=== PATIENT | male | born 1955 | race Caucasian/White ===

== ENCOUNTER 2018-05-28 09:05 | Inpatient (IN) | payer OTHER ==
[~2018-05-28] VITALS: Ht 175.3 cm; Wt 69.9 kg
[2018-05-28] VITALS (14 sets, daily range): BP systolic 74–96; BP diastolic 34–54
[~2018-05-28 09:05] MED LIST: ALBU2.5V14 NEB; AMLO10TA4 PO; ASPI-630 PO; LISI-130 PO; MONT10TA6 PO; PANT40TA3 PO; SPIR25TA PO; VENTOLIN HFA18 GM INH
--- NOTE | 2018-05-28 11:44 | RAD ---
Indication: NG tube placement confirmation check TECHNIQUE: Single supine view of the abdomen COMPARISON: None FINDINGS: NG tube is seen curled in the stomach with its tip in the region of gastric cardia. Visualized lung bases are clear. Diffusely distended small bowel loops are seen. IMPRESSION: Tip of the NG tube projects in the region of gastric cardia. Distended gas-filled loops of small bowel concerning for small bowel obstruction or ileus. Electronically signed by: Bo Paige DO (05/28/2018 11:39 AM) [facility]
--- NOTE | 2018-05-28 11:46 | RAD ---
Indication:HYPOXIA SHORTNESS OF BREATH TECHNIQUE:Portable AP chest X-ray COMPARISON:08/17/2015 FINDINGS: Heart is normal in size. Bilateral coarse interstitial opacities are seen without focal consolidation. No pneumothorax or pleural effusion. Visualized bony thorax within normal limits. IMPRESSION: Bilateral interstitial process may be secondary to atypical/viral infection or chronic interstitial changes. Findings are slightly worsened compared to previous study from 2014. Electronically signed by: Bo Paige DO (05/28/2018 11:43 AM) [facility]
[2018-05-28 11:47] LABS: BASE EXCESS COOX 1 mmol/L (-3-3); HCO3 COOX 31 mmol/L (21-28); METHEMOGLOBIN 0.3 % (0.0-1.9); OXYHEMOGLOBIN 92.7 %; PO2 COOX 81 mmHg (65-108); SAT O2 COOX 95 % (92-99)
[2018-05-28 11:49] LABS: PCO2 COOX 75 mmHg (35-46)
[2018-05-28] MEDS ORDERED: IV NORMAL SALINE 500ML BAG 500 ML IV ONE (12:00)
[2018-05-28 12:42] LABS: HEMATOCRIT 45.4 % (39.0-53.0); HEMOGLOBIN 14.2 g/dL (13.0-17.5); RED BLOOD COUNT 5.4 x10^6/uL (4.30-5.70); WHITE BLOOD COUNT 6.1 x10^3/uL (4.0-11.0)
--- NOTE | 2018-05-28 12:50 | HP ---
ADMIT DATE: 05/28/2018 HISTORY OF PRESENT ILLNESS: The patient is a 62-year-old male patient, an inmate at the [facility], who was seen at the Emergency Room of [facility] and admitted to the ICU with altered mental status. He was found to be extremely hypoxic, and he has acute hypoxic hypercapnic respiratory failure. 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 He was also found to be hyperkalemic and was admitted to the ICU of [facility]. He was put on BiPAP machine and was treated for hyperkalemia with Kayexalate, insulin and glucose as well as breathing treatment. He actually did well. He has awakened this morning. Unfortunately, he became extremely restless, agitated and was given Ativan before he was transferred to [facility] Intensive Care Unit. He apparently agreed to be DNR/DNI; however, I spoke with the doctor at the [facility] and given that he has hepatic encephalopathy, they have to have according to their legal department recommendation that he has to be more awake, alert, lucid and should be witnessed by mental health professional as well as his primary care physician. He is now legally still full code. Unfortunately, we do not know any immediate family members to talk to them about his condition, and therefore, he was admitted to [facility] full code. We will intubate him as necessary and consult all the subspecialists as needed and come Wednesday will be able to have more information and will consult our palliative care team and consider hospice care. By the time he arrived here, he was completely encephalopathic, unresponsive and does not give any useful information. PAST MEDICAL HISTORY: Significant for hypertension, chronic obstructive pulmonary disease, end-stage liver disease secondary to hepatitis C. He also has hepatocellular carcinoma with acute renal injury due to probably hepatorenal syndrome. SOCIAL HISTORY: The patient is an inmate. He is a smoker. There is no history of recent alcohol abuse or illegal drug use. FAMILY HISTORY: Unobtainable. MEDICATIONS: At the [facility] include albuterol inhaler 2 puffs 4 times a day, amlodipine 10 mg once a day, calcium carbonate 500 mg 3 times a day, furosemide 40 mg once a day, hydroxyzine 25 mg 3 times a day as needed. He was on lisinopril 40 mg once a day, Protonix 40 mg once a day and spironolactone 100 mg daily. ALLERGIES: He has no known drug allergies. REVIEW OF SYSTEMS: Unobtainable. PHYSICAL EXAMINATION: GENERAL: On examining him, he was pale, somewhat cachectic, but no jaundice, no cyanosis or thyromegaly. No jugular venous distention, but severe bilateral lower extremity lymphedema. VITAL SIGNS: His heart rate was 81, blood pressure was 86/46, temperature was 97.8, respiratory rate 20, and oxygen saturation was 100% on FiO2 of 50%. HEAD, EYES, EARS, NOSE AND THROAT: Showed normocephalic, atraumatic. NECK: Supple. HEART: Showed normal first and second heart sounds with no gallop, rub or murmur. CHEST: Clear to auscultation. No crepitation or rhonchi. ABDOMEN: Distended, with positive shifting dullness. There is no guarding or rigidity. No organomegaly. All hernial orifice intact. He has a small periumbilical easily reducible hernia. LABORATORY DATA: His blood gas this morning around 6:00 showed a pH of 7.22, pCO2 of 82, pO2 of 73, bicarbonate 34 and oxygen saturation was 99% on FiO2 of 40%. His white cell count was 6400, hemoglobin 14.7, hematocrit 47, MCV 83 and platelet count of 135,000. His chemistry showed a serum sodium 149, potassium 6.3, chloride 109, bicarbonate 31, anion gap of 9, BUN 53, creatinine 1.5, estimated GFR was 47 mL per minute, his glucose 100, calcium was 7.4. Total bilirubin was 2.4. AST, ALT, alkaline phosphatase are elevated. Ammonia was 92. Total protein was 5.1, albumin was 2.1. His prothrombin time was 12.5, INR of 1.2, aPTT was 25. His urinalysis showed the urine was clear with a pH of 5, specific gravity of 1.015. The urine was negative for protein, glucose, ketones, blood, nitrite and bilirubin. There were no rbc's, wbc's and very few bacteria. His toxic screen was positive for opiates, but negative for methadone, barbiturates, phencyclidine, amphetamine, methamphetamine, benzodiazepine, cocaine, cannabinoids. Apparently, his chest x-ray showed he has bilateral interstitial opacities, may be secondary to chronic interstitial changes, mild interstitial pulmonary edema or atypical infection. The CT scan of the head was done at [facility] also showed the patient's posterior fossa is unremarkable. There is no evidence of acute intracranial hemorrhage or abnormal extraaxial fluid collection, no evidence of mass effect or midline shift. A small ill-defined low density foci in the periventricular white matter bilaterally, likely small lacunar infarcts, mild prominence of ventricles and sulci, compatible with mild involutionary changes or atrophy, mild arterial vascular calcification. The visualized orbits are unremarkable. Visualized paranasal sinuses and mastoid air cells are clear. No acute calvarial abnormality. The patient was basically transferred to [facility] with acute hypoxic hypercapnic respiratory failure, hepatic encephalopathy, end-stage liver disease, acute kidney injury, likely due to hepatorenal syndrome, hyperkalemia. He is known to have chronic hepatitis C and also hepatocellular carcinoma detected on MRI done on 05/24/2018, which showed that the patient has large infiltrative centered in the segment 2-3 with a direct invasion of the left portal vein and adjacent small satellite lesion. He has also large circumscribed hepatic mass centered in segment 8 with arterial enhancement and washout, this mass results in peripheral intrahepatic bile duct dilatation of the right lobe. He has cirrhosis, portal hypertension, marked splenomegaly, portosystemic varices and moderate ascites. I have had a lengthy discussion with the doctor of the facility there, and apparently, the patient is legally considered full code. My plan is to put an NG tube, start him on lactulose to treat his hepatic encephalopathy, IV fluid and consult the cyanide case hardener as he might require intubation and mechanical ventilation. I also will consult the aco coordinator. Eventually, we are able to contact his family and the patient is more awake and can make a decision, he probably needs to be on hospice care. MARGARITO TONEY MD DR: HILDA/grace JOB#: [id number] / [id number]
[2018-05-28 12:56] LABS: PROTHROMBIN TIME PATIENT 16.2 SEC (11.7-14.0)
[2018-05-28] MEDS: methylPREDNISolone SOD SUCC PF 40 MG/ML VIAL. IV SCH ×2 (13:14→22:10)
[2018-05-28] MEDS: LACTULOSE 20 GM/30 ML SOLUTION. PO SCH ×3 (13:14→19:53)
[2018-05-28] MEDS: MONTELUKAST SODIUM 10 MG TABLET. PO SCH (13:14)
[2018-05-28] MEDS: PANTOPRAZOLE 40 MG TABLET.DR. PO SCH (13:14)
[2018-05-28] MEDS: IV NORMAL SALINE 1000ML BAG 1,000 ML IV SCH (13:15)
[2018-05-28 13:17] LABS: ALBUMIN/GLOBULIN RATIO 0.6 (1.0-1.7); CALCIUM 6.8 mg/dL (8.5-10.1); CREATININE 1.5 mg/dL (0.7-1.3); GFR 47.4; POTASSIUM 5.1 mmol/L (3.5-5.1); TOTAL BILIRUBIN 1.9 mg/dL (0.2-1.0); TOTAL PROTEIN 5.2 g/dL (6.4-8.2)
[2018-05-28] MEDS ORDERED: CALC200T3 PO (13:58)
[2018-05-28] MEDS ORDERED: LACT20SO PO (13:58)
[2018-05-28] MEDS ORDERED: MORP15TA PO (13:58)
[2018-05-28] MEDS ORDERED: FURO40TA4 PO (13:58)
[2018-05-28] MEDS ORDERED: TRIA15OI TP (13:58)
[2018-05-28] MEDS ORDERED: ALBUTEROL SULFATE 2.5 MG/3 ML NEBU. NEB SCH (14:00)
[2018-05-28] MEDS ORDERED: PIP/TAZO PER PHARMACY MC PRN (14:00)
[2018-05-28] MEDS: PIPERACILLIN/TAZOBACTAM 3.375 GM in IV NORMAL SALINE 50ML 50 ML IV SCH ×2 (14:23→19:53)
--- NOTE | 2018-05-28 14:32 | PDOC2 ---
CONSULT Date of Consult Date of Consult DATE: 05/28/18 TIME: 14:27 Reason for Consult Reason for Consult: Cirrhosis-hep c-encephalopathy Past Medical History Cardiovascular: CAD, HTN, Other Pulmonary: Bronchitis, COPD GI: GI bleed Heme/Onc: No pertinent hx Hepatobiliary: Hep A/B/C Psych: Anxiety, Panic Musculoskeletal: Osteoarthritis Rheumatologic: No pertinent hx Infectious disease: Other Renal/: No pertinent hx Endocrine: Hypothyroidism Past Surgical History Past Surgical History: Other Family History Family History: Cancer Social History ALCOHOL: none Drugs: None Current Medications Current Medications Current Medications Pantoprazole Sodium (Protonix) 40 mg DAILYAC PO Last administered on 05/28/18 13:14; Start 05/28/18 at 12:30 Albuterol Sulfate (Ventolin Neb Soln) 2.5 mg TID NEB Last administered on at 13:02; Start 05/28/18 at 14:00; Stop 05/28/18 at 14:03; Status DC Montelukast Sodium (Singulair) 10 mg DAILY PO Last administered on 05/28/18at 13 :14; Start 05/28/18 at 12:30 Lactulose (Lactulose) 20 gm Q4H PO Last administered on 05/28/18at 13:14; Start 05/28/18 at 12:00 Sodium Chloride 500 ml @ 500 mls/hr 1X ONCE IV Last administered on at 12:07; Start 05/28/18 at 12:00; Stop 05/28/18 at 12:59; Status DC Sodium Chloride 1,000 ml @ 100 mls/hr Q10H IV Last administered on 05/28/18at 13:15; Start 05/28/18 at 13:00 Methylprednisolone Sodium Succinate (SOLU-Medrol 40MG VIAL) 40 mg Q8HRS IV Last administered on 05/28/18at 13:14; Start 05/28/18 at 14:00 Albuterol/ Ipratropium (Duoneb) 3 ml Q4HRS NEB ; Start 05/28/18 at 16:00 Budesonide (Pulmicort) 0.5 mg RTBID NEB ; Start 05/28/18 at 20:00 Piperacillin Sod/ Tazobactam Sod (Zosyn Per Pharmacy) 1 each PRN DAILY PRN MC SEE COMMENTS; Start 05/28/18 at 14:00 Piperacillin Sod/ Tazobactam Sod 3.375 gm/Sodium Chloride 50 ml @ 100 mls/hr Q6HRS IV Last administered on 05/28/18at 14:23; Start 05/28/18 at 14:00 Active Scripts Active Aldactone (Spironolactone) 25 Mg Tablet 25 Mg PO [id number] Protonix (Pantoprazole Sodium) 40 Mg Tablet 40 Mg PO DAILYAC Reported Tums (Calcium Carbonate) 200 Mg Tab.chew 200 Mg PO PRN BID PRN Triamcinolone Acetonide 0.1% Oint (Triamcinolone Acetonide) 15 Gm Oint...g. 1 Tara TP BID MIX WITH EUCERIN DIRECTED BY PHYSICIAN Morphine Sulfate 15 Mg Tablet 15 Mg PO PRN Q8HRS PRN Lactulose 20 Gm/30 Ml Solution 20 Gm PO DAILY Furosemide 40 Mg Tablet 40 Mg PO BID Ventolin Hfa Inhaler (Albuterol Sulfate) 18 Gm Hfa.aer.ad 2 Puff INH QID Albuterol Sulfate Conc Neb Soln (Albuterol Sulfate) 2.5 Mg/0.5 Ml Vial.neb 2.5 Mg NEB TID Singulair Tablet (Montelukast Sodium) 10 Mg Tablet 1 Tab PO DAILY Norvasc (Amlodipine Besylate) 10 Mg Tablet 1 Tab PO DAILY Lisinopril 40 Mg Tablet 1 Tab PO DAILY Aspirin 81 Mg Tab.chew 1 Tab PO DAILY Allergies Allergies: Coded Allergies: No Known Drug Allergies (Unverified , 06/24/15) Vitals VITALS Vital Signs Date Time Temp Pulse Resp B/P (MAP) Pulse Ox O2 Delivery O2 Flow Rate FiO2 05/28/18 13:02 96 BiPAP/CPAP 05/28/18 13:00 80 24 84/53 (63) 05/28/18 11:17 15.0 05/28/18 10:30 97.1 97.1 Labs Labs Laboratory Tests Test 05/28/18 11:40 05/28/18 12:30 O2 Saturation 95 % (92-99) Arterial Blood pH 7.24 (7.35-7.45) Arterial Blood pCO2 at Patient Temp 75 mmHg (35-46) Arterial Blood pO2 at Patient Temp 81 mmHg (65-108) Arterial Blood HCO3 31 mmol/L (21-28) Arterial Blood Base Excess 1 mmol/L (-3-3) Oxyhemoglobin 92.7 % Methemoglobin 0.3 % (0.0-1.9) Carbon Monoxide, Quantitative 2.4 % (0.0-1.9) FiO2 50 White Blood Count 6.1 x10^3/uL (4.0-11.0) Red Blood Count 5.40 x10^6/uL (4.30-5.70) Hemoglobin 14.2 g/dL (13.0-17.5) Hematocrit 45.4 % (39.0-53.0) Mean Corpuscular Volume 84 fL (79-100) Mean Corpuscular Hemoglobin 26 pg (25-35) Mean Corpuscular Hemoglobin Concent 31 g/dL (31-37) Red Cell Distribution Width 22.0 % (11.5-14.5) Platelet Count 124 x10^3/uL (140-400) Prothrombin Time 16.2 SEC (11.7-14.0) Prothromb Time International Ratio 1.4 (0.8-1.1) Sodium Level 144 mmol/L (136-145) Potassium Level 5.1 mmol/L (3.5-5.1) Chloride Level 109 mmol/L (98-107) Carbon Dioxide Level 30 mmol/L (21-32) Anion Gap 5 (6-14) Blood Urea Nitrogen 56 mg/dL (8-26) Creatinine 1.5 mg/dL (0.7-1.3) Estimated GFR (Cockcroft-Gault) 47.4 BUN/Creatinine Ratio 37 (6-20) Glucose Level 114 mg/dL (70-99) Lactic Acid Level 1.6 mmol/L (0.4-2.0) Calcium Level 6.8 mg/dL (8.5-10.1) Total Bilirubin 1.9 mg/dL (0.2-1.0) Aspartate Amino Transf (AST/SGOT) 259 U/L (15-37) Alanine Aminotransferase (ALT/SGPT) 51 U/L (16-63) Alkaline Phosphatase 190 U/L (46-116) Ammonia 87 mcmol/L (11-34) Total Protein 5.2 g/dL (6.4-8.2) Albumin 2.0 g/dL (3.4-5.0) Albumin/Globulin Ratio 0.6 (1.0-1.7) Laboratory Tests Test 05/28/18 11:40 05/28/18 12:30 O2 Saturation 95 % (92-99) Arterial Blood pH 7.24 (7.35-7.45) Arterial Blood pCO2 at Patient Temp 75 mmHg (35-46) Arterial Blood pO2 at Patient Temp 81 mmHg (65-108) Arterial Blood HCO3 31 mmol/L (21-28) Arterial Blood Base Excess 1 mmol/L (-3-3) Oxyhemoglobin 92.7 % Methemoglobin 0.3 % (0.0-1.9) Carbon Monoxide, Quantitative 2.4 % (0.0-1.9) FiO2 50 White Blood Count 6.1 x10^3/uL (4.0-11.0) Red Blood Count 5.40 x10^6/uL (4.30-5.70) Hemoglobin 14.2 g/dL (13.0-17.5) Hematocrit 45.4 % (39.0-53.0) Mean Corpuscular Volume 84 fL (79-100) Mean Corpuscular Hemoglobin 26 pg (25-35) Mean Corpuscular Hemoglobin Concent 31 g/dL (31-37) Red Cell Distribution Width 22.0 % (11.5-14.5) Platelet Count 124 x10^3/uL (140-400) Prothrombin Time 16.2 SEC (11.7-14.0) Prothromb Time International Ratio 1.4 (0.8-1.1) Sodium Level 144 mmol/L (136-145) Potassium Level 5.1 mmol/L (3.5-5.1) Chloride Level 109 mmol/L (98-107) Carbon Dioxide Level 30 mmol/L (21-32) Anion Gap 5 (6-14) Blood Urea Nitrogen 56 mg/dL (8-26) Creatinine 1.5 mg/dL (0.7-1.3) Estimated GFR (Cockcroft-Gault) 47.4 BUN/Creatinine Ratio 37 (6-20) Glucose Level 114 mg/dL (70-99) Lactic Acid Level 1.6 mmol/L (0.4-2.0) Calcium Level 6.8 mg/dL (8.5-10.1) Total Bilirubin 1.9 mg/dL (0.2-1.0) Aspartate Amino Transf (AST/SGOT) 259 U/L (15-37) Alanine Aminotransferase (ALT/SGPT) 51 U/L (16-63) Alkaline Phosphatase 190 U/L (46-116) Ammonia 87 mcmol/L (11-34) Total Protein 5.2 g/dL (6.4-8.2) Albumin 2.0 g/dL (3.4-5.0) Albumin/Globulin Ratio 0.6 (1.0-1.7) Assessment/Plan Assessment/Plan Cirrhosis- end stage, secondary to hep c with encephalopathy Plan medical therapy pending disposition plans Full note dictated NATHEN BAUER MD May 28, 2018 14:32
[2018-05-28 16:10] LABS: BASE EXCESS COOX 3 mmol/L (-3-3); HCO3 COOX 29 mmol/L (21-28); METHEMOGLOBIN 0.2 % (0.0-1.9); OXYHEMOGLOBIN 88.7 %; PCO2 COOX 52 mmHg (35-46); PO2 COOX 58 mmHg (65-108); SAT O2 COOX 91 % (92-99)
[2018-05-28] MEDS: IPRATRPIUM/ALBUTEROL 0.5/2.5MG 3 ML NEBU. NEB SCH ×3 (17:06→23:50)
[2018-05-28] MEDS: MORPHINE SULFATE 2 MG/ML VIAL. IV PRN ×2 (17:08→19:54)
--- NOTE | 2018-05-28 19:36 | PDOC ---
Infectious Disease Note Vital Sign Vital Signs Vital Signs Date Time Temp Pulse Resp B/P (MAP) Pulse Ox O2 Delivery O2 Flow Rate FiO2 05/28/18 19:00 90 22 76/48 (57) 91 BiPAP/CPAP 05/28/18 15:00 97.2 97.2 05/28/18 11:17 15.0 Labs Lab Laboratory Tests Test 05/28/18 11:40 05/28/18 12:30 05/28/18 16:05 O2 Saturation 95 % (92-99) 91 % (92-99) Arterial Blood pH 7.24 (7.35-7.45) 7.37 (7.35-7.45) Arterial Blood pCO2 at Patient Temp 75 mmHg (35-46) 52 mmHg (35-46) Arterial Blood pO2 at Patient Temp 81 mmHg (65-108) 58 mmHg (65-108) Arterial Blood HCO3 31 mmol/L (21-28) 29 mmol/L (21-28) Arterial Blood Base Excess 1 mmol/L (-3-3) 3 mmol/L (-3-3) Oxyhemoglobin 92.7 % 88.7 % Methemoglobin 0.3 % (0.0-1.9) 0.2 % (0.0-1.9) Carbon Monoxide, Quantitative 2.4 % (0.0-1.9) 2.3 % (0.0-1.9) FiO2 50 30 White Blood Count 6.1 x10^3/uL (4.0-11.0) Red Blood Count 5.40 x10^6/uL (4.30-5.70) Hemoglobin 14.2 g/dL (13.0-17.5) Hematocrit 45.4 % (39.0-53.0) Mean Corpuscular Volume 84 fL (79-100) Mean Corpuscular Hemoglobin 26 pg (25-35) Mean Corpuscular Hemoglobin Concent 31 g/dL (31-37) Red Cell Distribution Width 22.0 % (11.5-14.5) Platelet Count 124 x10^3/uL (140-400) Prothrombin Time 16.2 SEC (11.7-14.0) Prothromb Time International Ratio 1.4 (0.8-1.1) Sodium Level 144 mmol/L (136-145) Potassium Level 5.1 mmol/L (3.5-5.1) Chloride Level 109 mmol/L (98-107) Carbon Dioxide Level 30 mmol/L (21-32) Anion Gap 5 (6-14) Blood Urea Nitrogen 56 mg/dL (8-26) Creatinine 1.5 mg/dL (0.7-1.3) Estimated GFR (Cockcroft-Gault) 47.4 BUN/Creatinine Ratio 37 (6-20) Glucose Level 114 mg/dL (70-99) Lactic Acid Level 1.6 mmol/L (0.4-2.0) Calcium Level 6.8 mg/dL (8.5-10.1) Total Bilirubin 1.9 mg/dL (0.2-1.0) Aspartate Amino Transf (AST/SGOT) 259 U/L (15-37) Alanine Aminotransferase (ALT/SGPT) 51 U/L (16-63) Alkaline Phosphatase 190 U/L (46-116) Ammonia 87 mcmol/L (11-34) Total Protein 5.2 g/dL (6.4-8.2) Albumin 2.0 g/dL (3.4-5.0) Albumin/Globulin Ratio 0.6 (1.0-1.7) Objective Assessment Bilateral interstitial opacities Acute respiratory failure DEWAYNE SBO vs ileus Hepatic encephalopathy Hepatocellular carcinoma Hepatitis C COPD Chronic venous stasis h/x IVDU Incarcerated Plan Plan of Care empiric Zosyn and add Zyvox BC NGTD ([facility]) Monitor labs/platelets Supportive care No family available Full code Above d/w Dr. Prado Thank you [id number] Patient seen and examined. Chart reviewed in detail. Case discussed with GREEN MARKETER. Agree with above plan. GILSON ABREU APRN May 28, 2018 19:36 MALA PRADO MD May 28, 2018 19:57
[2018-05-28] MEDS: BUDESONIDE 0.5 MG/2 ML NEBU. NEB SCH (19:59)
[2018-05-29] VITALS (24 sets, daily range): BP systolic 74–142; BP diastolic 42–66
[2018-05-29] MEDS ORDERED: NOREPINEPHRIN 8MG/250ML PREMIX 250 ML IV PRN (01:15)
[2018-05-29] MEDS: PIPERACILLIN/TAZOBACTAM 3.375 GM in IV NORMAL SALINE 50ML 50 ML IV SCH ×4 (01:41→17:54)
[2018-05-29] MEDS: IPRATRPIUM/ALBUTEROL 0.5/2.5MG 3 ML NEBU. NEB SCH ×5 (03:10→20:06)
[2018-05-29] MEDS: IV NORMAL SALINE 1000ML BAG 1,000 ML IV SCH (03:37)
[2018-05-29] MEDS: LACTULOSE 20 GM/30 ML SOLUTION. PO SCH ×5 (03:59→21:03)
[2018-05-29 04:01] LABS: HEMATOCRIT 45.1 % (39.0-53.0); HEMOGLOBIN 14.3 g/dL (13.0-17.5); RED BLOOD COUNT 5.4 x10^6/uL (4.30-5.70); RED CELL DISTRIBUTION WIDTH 22.1 % (11.5-14.5); WHITE BLOOD COUNT 6.7 x10^3/uL (4.0-11.0)
[2018-05-29 04:22] LABS: ALBUMIN 2.1 g/dL (3.4-5.0); ALBUMIN/GLOBULIN RATIO 0.7 (1.0-1.7); CREATININE 1.8 mg/dL (0.7-1.3); GFR 38.4; POTASSIUM 4.8 mmol/L (3.5-5.1); TOTAL BILIRUBIN 1.9 mg/dL (0.2-1.0); TOTAL PROTEIN 5.3 g/dL (6.4-8.2)
--- NOTE | 2018-05-29 04:25 | CONS ---
DATE OF CONSULTATION: 05/28/2018 GASTROENTEROLOGY CONSULTATION REASON FOR CONSULTATION: Hep C, cirrhosis, hepatic encephalopathy. REFERRING PHYSICIAN: Dr. Barrios. HISTORY OF PRESENT ILLNESS: A 62-year-old male whose past medical history is significant for COPD, end-stage liver disease hep C and encephalopathy as well as possible hepatocellular carcinoma, is seen with end-stage disease. The patient wishes to be made hospice ____ disposition plans are pending. PAST MEDICAL HISTORY: Hepatitis C, cirrhosis, encephalopathy. SOCIAL HISTORY: Smoker. He is an inmate. FAMILY HISTORY: Noncontributory. MEDICATIONS: Include amlodipine, calcium, furosemide, hydroxyzine, lisinopril, Protonix and spironolactone. REVIEW OF SYSTEMS: Not obtainable as he is on a BiPAP mask. PHYSICAL EXAMINATION: GENERAL: Thin male. VITAL SIGNS: Pulse 80, respirations 24, blood pressure is 84/53 on BiPAP. HEENT: Normocephalic and atraumatic. Pupils and extraocular muscles are not tested. Sclerae anicteric. NECK: Supple. LUNGS: Clear. CARDIOVASCULAR: Reveals S1, S2 without S3, S4 or appreciable murmur. ABDOMEN: Soft abdomen, normal bowel sounds without appreciable hepatosplenomegaly. EXTREMITIES: Reveals no cyanosis, clubbing or edema. LABORATORY STUDIES: Sodium 144, potassium 5.1, chloride 109, bicarb is 30, BUN 36, creatinine is 1.5, glucose 114, calcium is 6.8, total bilirubin 1.9, AST , ALT 51, alkaline phosphatase 115, total protein 5.2. Ammonia is 87. Hemoglobin 14.2, hematocrit 45.4, white count 6.1, platelet count of 122,000. IMPRESSION: Hepatitis C, cirrhosis, encephalopathy, most likely secondary to end-stage liver disease. Await disposition plans as the patient's long-term survival is nil without liver transplantation. NATHEN BAUER MD DR: ZEYAD/grace JOB#: [id number] / [id number] MARGARITO Hdez MD, Dr.
[2018-05-29] MEDS: methylPREDNISolone SOD SUCC PF 40 MG/ML VIAL. IV SCH ×3 (06:20→21:04)
--- NOTE | 2018-05-29 06:56 | PDOC ---
Provider Note Provider Note [id number] acute resp fail sepsis pneumonia ae of copd hepatic encephalopathy see orders JORDEN JOHNS MD May 29, 2018 06:56
[2018-05-29] MEDS: BUDESONIDE 0.5 MG/2 ML NEBU. NEB SCH ×2 (07:37→20:06)
[2018-05-29] MEDS: MONTELUKAST SODIUM 10 MG TABLET. PO SCH (07:58)
[2018-05-29] MEDS: PANTOPRAZOLE 40 MG TABLET.DR. PO SCH (07:58)
--- NOTE | 2018-05-29 08:23 | RAD ---
Bilateral lower extremity venous Doppler: Reason for examination: Bilateral leg edema. The right and left lower extremity venous systems were evaluated from the common femoral and greater saphenous veins distally to the calf veins with grayscale imaging, color-flow imaging and spectral analysis. There is no deep venous thrombosis. There is normal blood flow in the venous system and normal response of the venous system to compression and augmentation. IMPRESSION: No deep venous thrombosis in the right or left lower extremity. Electronically signed by: Celeste Sanchez MD (05/29/2018 8:20 AM) [facility]
[2018-05-29 08:27] LABS: BASE EXCESS ABG 5 mmol/L (-3-3); HCO3 ABG 30 mmol/L (21-28); PCO2 ABG 45 mmHg (35-46); PO2 ABG 69 mmHg (65-108); SAT O2 ABG 93 % (92-99)
[2018-05-29 08:28] LABS: FIO2 ABG 24
--- NOTE | 2018-05-29 08:30 | CONS ---
DATE OF CONSULTATION: 05/29/2018 I was asked to see this 62-year-old gentleman for acute respiratory failure. HISTORY OF PRESENT ILLNESS: The patient was admitted. He was lethargic now. He has had lactulose for ammonia level of 87. Now, he answers most of my questions. He has significant history of smoking, quit smoking in 1980s. He does have hepatitis C. He is incarcerated. He presented to [facility] with acute respiratory failure, altered mental status, was transferred to [place] for further evaluation. His ABG on admission; pH 7.24, pCO2 75, pO2 81 on 50% FiO2. I did place the patient on BiPAP and repeat ABG on BiPAP; pH 7.37, pCO2 52, pO2 58. Currently, he is on oxygen. He does have shortness of breath. He denies pain. He has cough. PAST MEDICAL HISTORY: Hepatitis C, hepatocellular carcinoma, COPD, history of IV drug abuse, chronic venous stasis. ALLERGIES: No known drug allergies. MEDICATIONS: Currently, he is on Levophed, Zyvox, Zosyn, Pulmicort, DuoNeb, Solu-Medrol 40 mg IV every 8 hours, Protonix. SOCIAL HISTORY: Positive for smoking. FAMILY HISTORY: Positive for hypertension. REVIEW OF SYSTEMS: As mentioned as above, other systems otherwise negative. PHYSICAL EXAMINATION: GENERAL: This is a well-nourished gentleman. VITAL SIGNS: His O2 saturation on 2 liters of oxygen is 95%, respiratory rate 22, heart rate 84, blood pressure 102/55. VITAL SIGNS: Temperature 97.9. HEENT: Normocephalic, atraumatic. Pupils equal, round, reactive to light. Throat is clear. Nose is clear. NECK: There is no JVD, lymphadenopathy or thyromegaly. CARDIOVASCULAR: Regular rate and rhythm. PMI is nondisplaced. CHEST: Inspection is normal. LUNGS: There are bibasilar crackles, a few end expiratory wheezing, dullness at the bases. ABDOMEN: Distended, bowel sounds diminished. EXTREMITIES: There is edema, chronic changes. NEUROLOGIC: Alert. LYMPHATICS: There is no lymphadenopathy. SKIN: Chronic changes. LABORATORY DATA: I reviewed the following lab data: Chest x-ray shows bilateral infiltrate. Sodium 146, potassium 4.8, chloride 109, CO2 32, glucose 138, BUN 60, creatinine 1.8. Lactic acid 1.6. Ammonia on admission 87, today 24; AST 279, ALT 52, total bilirubin 1.9. WBC 6.7, hemoglobin 14.3, platelets 119. INR 1.4. Chest x-ray, bilateral infiltrate. KUB, small-bowel obstruction versus ileus. IMPRESSION: 1. Acute hypoxemic respiratory failure, multifactorial in etiology including pneumonia, acute exacerbation of chronic obstructive pulmonary disease versus others. 2. Abnormal chest x-ray. 3. Pneumonia. 4. Acute exacerbation of chronic obstructive pulmonary disease. 5. Hepatitis C. 6. Hepatocellular carcinoma. 7. Hepatic encephalopathy, improving. 8. Thrombocytopenia. 9. Acute kidney injury. 10. Sepsis. PLAN AND RECOMMENDATIONS: 1. Titrate FiO2 to keep O2 saturation 92%. 2. BiPAP p.r.n., setting was reviewed. 3. Bronchodilator. 4. Inhaled corticosteroid. 5. Solu-Medrol 40 mg IV every 8 hours. 6. Continue antibiotic. Follow up cultures. ID is on the case. 7. Continue pressors to keep mean arterial pressure more than 65. 8. Elevate head of bed. 9. Lower extremity venous Doppler. 10. Protonix for stress ulcer prophylaxis. 11. May start Lovenox for DVT prophylaxis. 12. Monitor respiratory status very closely. 13. The findings and recommendations were discussed with RN and RT and the patient. Thank you very much for allowing me to participate in care of this very nice gentleman. JORDEN JOHNS M.D. DR: MAURISIO/grace JOB#: [id number] / [id number] GOLDEN
[2018-05-29] MEDS ORDERED: IV NORMAL SALINE 500ML BAG 500 ML IV ONE (09:00)
--- NOTE | 2018-05-29 09:15 | PDOC ---
Infectious Disease Note Subjective Subjective Off BiPAP, now on 1 L O2. Says breathing better Hypotensive requiring Levophed, weaning + diarrhea with Lactulose Denies pain/N/V Periods of agitation, wants mitts taken off ROS ROS per HPI Vital Sign Vital Signs Vital Signs Date Time Temp Pulse Resp B/P (MAP) Pulse Ox O2 Delivery O2 Flow Rate FiO2 05/29/18 08:10 95 Nasal Cannula 1.0 05/29/18 07:00 97.8 79 87/46 (60) 97.8 05/29/18 06:00 22 Physical Exam PHYSICAL EXAM GENERAL: Lying down, alert, yelling out for nurse HENT: NGT LUNGS: CTAB anteriorly CV: S1 S2 ABDOMEN: Distended, soft, NT to light palpation : Indwelling [place] EXT: Chronic stasis changes and a few scabs lower extremities bilaterally, + wrinkles SKIN: Warm, no rash. Multiple tattoos PIVs Labs Lab Laboratory Tests Test 05/28/18 11:40 05/28/18 12:30 05/28/18 16:05 05/29/18 03:30 O2 Saturation 95 % (92-99) 91 % (92-99) Arterial Blood pH 7.24 (7.35-7.45) 7.37 (7.35-7.45) Arterial Blood pCO2 at Patient Temp 75 mmHg (35-46) 52 mmHg (35-46) Arterial Blood pO2 at Patient Temp 81 mmHg (65-108) 58 mmHg (65-108) Arterial Blood HCO3 31 mmol/L (21-28) 29 mmol/L (21-28) Arterial Blood Base Excess 1 mmol/L (-3-3) 3 mmol/L (-3-3) Oxyhemoglobin 92.7 % 88.7 % Methemoglobin 0.3 % (0.0-1.9) 0.2 % (0.0-1.9) Carbon Monoxide, Quantitative 2.4 % (0.0-1.9) 2.3 % (0.0-1.9) FiO2 50 30 White Blood Count 6.1 x10^3/uL (4.0-11.0) 6.7 x10^3/uL (4.0-11.0) Red Blood Count 5.40 x10^6/uL (4.30-5.70) 5.40 x10^6/uL (4.30-5.70) Hemoglobin 14.2 g/dL (13.0-17.5) 14.3 g/dL (13.0-17.5) Hematocrit 45.4 % (39.0-53.0) 45.1 % (39.0-53.0) Mean Corpuscular Volume 84 fL (79-100) 83 fL (79-100) Mean Corpuscular Hemoglobin 26 pg (25-35) 26 pg (25-35) Mean Corpuscular Hemoglobin Concent 31 g/dL (31-37) 32 g/dL (31-37) Red Cell Distribution Width 22.0 % (11.5-14.5) 22.1 % (11.5-14.5) Platelet Count 124 x10^3/uL (140-400) 119 x10^3/uL (140-400) Prothrombin Time 16.2 SEC (11.7-14.0) Prothromb Time International Ratio 1.4 (0.8-1.1) Sodium Level 144 mmol/L (136-145) 146 mmol/L (136-145) Potassium Level 5.1 mmol/L (3.5-5.1) 4.8 mmol/L (3.5-5.1) Chloride Level 109 mmol/L (98-107) 109 mmol/L (98-107) Carbon Dioxide Level 30 mmol/L (21-32) 32 mmol/L (21-32) Anion Gap 5 (6-14) 5 (6-14) Blood Urea Nitrogen 56 mg/dL (8-26) 60 mg/dL (8-26) Creatinine 1.5 mg/dL (0.7-1.3) 1.8 mg/dL (0.7-1.3) Estimated GFR (Cockcroft-Gault) 47.4 38.4 BUN/Creatinine Ratio 37 (6-20) 33 (6-20) Glucose Level 114 mg/dL (70-99) 138 mg/dL (70-99) Lactic Acid Level 1.6 mmol/L (0.4-2.0) Calcium Level 6.8 mg/dL (8.5-10.1) 7.0 mg/dL (8.5-10.1) Total Bilirubin 1.9 mg/dL (0.2-1.0) 1.9 mg/dL (0.2-1.0) Aspartate Amino Transf (AST/SGOT) 259 U/L (15-37) 279 U/L (15-37) Alanine Aminotransferase (ALT/SGPT) 51 U/L (16-63) 52 U/L (16-63) Alkaline Phosphatase 190 U/L (46-116) 186 U/L (46-116) Ammonia 87 mcmol/L (11-34) 24 mcmol/L (11-34) Total Protein 5.2 g/dL (6.4-8.2) 5.3 g/dL (6.4-8.2) Albumin 2.0 g/dL (3.4-5.0) 2.1 g/dL (3.4-5.0) Albumin/Globulin Ratio 0.6 (1.0-1.7) 0.7 (1.0-1.7) Test 05/29/18 08:20 O2 Saturation 93 % (92-99) Arterial Blood pH 7.44 (7.35-7.45) Arterial Blood pCO2 at Patient Temp 45 mmHg (35-46) Arterial Blood pO2 at Patient Temp 69 mmHg (65-108) Arterial Blood HCO3 30 mmol/L (21-28) Arterial Blood Base Excess 5 mmol/L (-3-3) FiO2 24 IMPRESSION: No deep venous thrombosis in the right or left lower extremity. Objective Assessment Bilateral interstitial opacities Acute respiratory failure, off BiPAP DEWAYNE SBO vs ileus Hepatic encephalopathy Thrombocytopenia Hepatocellular carcinoma Hepatitis C COPD Chronic venous stasis h/x IVDU Incarcerated Plan Plan of Care empiric Zosyn and add Zyvox BC NGTD ([facility]) Monitor labs/platelets Supportive care No family available Full code D/w RN Patient seen and examined. Chart reviewed in detail. 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 Agree with above plan. GILSON ABREU APRN May 29, 2018 09:15 MALA BUSH MD May 29, 2018 21:10
[2018-05-29] MEDS: MORPHINE SULFATE 2 MG/ML VIAL. IV PRN (10:05)
--- NOTE | 2018-05-29 10:56 | CONS ---
DATE OF CONSULTATION: 05/28/2018 This is Eren Hartley, nurse practitioner dictating for Dr. Mala Bush, Infectious Disease. REFERRING PHYSICIAN: Dr. Barrios. REASON FOR CONSULT: Possible bilateral infiltrate. HISTORY OF PRESENT ILLNESS: This patient is a 62-year-old male who is currently encephalopathic on BiPAP, unable to provide history of present illness, past medical history or review of systems. According to the medical record, he has a past history of COPD, end-stage liver disease and hepatocellular carcinoma secondary to hepatitis C. He has been an inmate at [facility] for the past 25 years. He initially presented to [facility] in [place] with altered mental status changes, acute respiratory failure and acute renal failure with hyperkalemia. Chest x-ray revealed increased interstitial markings. A head CT showed small bilateral white matter well-defined low density foci, likely small lacunar infarcts. No evidence of acute intracranial hemorrhage or mass effect. He was afebrile with a normal white blood cell count. He had ammonia level of 92. He was treated with BiPAP , steroids, albuterol, Lasix, and Kayexalate before transferring to [facility]. He remains on BiPAP. He was extremely restless earlier and is needing to wear mittens. PAST MEDICAL HISTORY: Hypertension, chronic obstructive pulmonary disease, end-stage cirrhosis of liver, hepatocellular carcinoma, hepatitis C, venous stasis ulcers, peripheral vascular disease. PAST SURGICAL HISTORY: No recent surgeries. SOCIAL HISTORY: The patient is an inmate at [facility] for the past 25 years. History of tobaccoism, IV drug use and K2/synthetic marijuana use. FAMILY HISTORY: Not obtainable. ALLERGIES: No known drug allergies. MEDICATIONS: Zosyn, methylprednisolone. Other medications are available and have been reviewed on the DEC. PHYSICAL EXAMINATION: GENERAL: The patient is slightly propped up in bed, calm. VITAL SIGNS: Temperature is 97.2, blood pressure is 76/48, heart rate 90, respiratory rate 22, pulse oximetry is 91% on 30% FiO2 via BiPAP. HEENT: On BiPAP, NG tube in place. LUNGS: Clear to auscultation anteriorly. HEART: S1 and S2. ABDOMEN: Distended. Bowel sounds active, somewhat taunt. No grimace or guarding to palpation. GENITOURINARY: Indwelling [place] catheter in place. EXTREMITIES: Trace edema in lower extremities bilaterally with chronic stasis changes. SKIN: Warm without rash. He has multiple tattoos. NEUROLOGIC: He becomes easily agitated and softly moans to gentle tactile stimulation. He does not follow commands or answer questions. Peripheral IVs look okay. LABORATORY DATA: Recent WBC 6.1, hemoglobin 14.2, platelet count 124,000. Sodium 144, potassium 5.1, creatinine 1.5, glucose 114. Lactic acid 1.6. AST 259, ALT 51, total bilirubin 1.9, ammonia 87, albumin 2.0. Blood cultures from May 27 at [facility] negative to date. Urinalysis from May 27 at [facility] unremarkable for infection. Head CT and chest x-ray per HPI. KUB shows distended gas filled loops of small bowel concerning for small-bowel obstruction or ileus. IMPRESSION: 1. Bilateral interstitial opacities. 2. Acute respiratory failure. 3. Acute kidney injury. 4. Small-bowel obstruction versus ileus. 5. Hepatic encephalopathy. 6. Hepatocellular carcinoma. 7. Hepatitis C. 8. Chronic obstructive pulmonary disease. 9. Chronic venous stasis. 10. History of IV drug use. 11. Incarceration. PLAN: Continue empiric Zosyn and add Zyvox. Blood cultures from May 27 at [facility] are negative so far. Continue to monitor laboratory values including platelet count. Supportive care. There is no family available at this time. The patient remains full code. Thank you, Dr. Barrios for asking us to participate in this patient's care. Should you have further questions or concerns, please call. MALA BUSH MD DR: INEZ/grace JOB#: [id number] / [id number] GOLDEN
[2018-05-29] MEDS: IV DEXTROSE 5 %-0.2 % NACL 1,000 ML IV SCH ×2 (11:08→21:04)
--- NOTE | 2018-05-29 12:13 | PDOC2 ---
CONSULT Date of Consult Date of Consult DATE: 05/29/18 TIME: 12:09 Reason for Consult Reason for Consult: left inguinal hernia Referring Physician Referring Physician: Dr Barrios Identification/Chief Complaint Chief Complaint end stage liver disease Source Source: Chart review History of Present Illness Reason for Visit: Mr William has end stage liver disease. He has a long standing left inguinal hernia Past Medical History Cardiovascular: CAD, HTN, Other Pulmonary: Bronchitis, COPD GI: GI bleed Heme/Onc: No pertinent hx Hepatobiliary: Hep A/B/C Psych: Anxiety, Panic Musculoskeletal: Osteoarthritis Rheumatologic: No pertinent hx Infectious disease: Other Renal/: No pertinent hx Endocrine: Hypothyroidism Past Surgical History Past Surgical History: Other Family History Family History: Cancer Social History ALCOHOL: none Drugs: None Current Medications Current Medications Current Medications Pantoprazole Sodium (Protonix) 40 mg DAILYAC PO Last administered on 05/29/18at 07:58; Start 05/28/18 at 12:30 Albuterol Sulfate (Ventolin Neb Soln) 2.5 mg TID NEB Last administered on at 13:02; Start 05/28/18 at 14:00; Stop 05/28/18 at 14:03; Status DC Montelukast Sodium (Singulair) 10 mg DAILY PO Last administered on 05/29/18at 07 :58; Start 05/28/18 at 12:30 Lactulose (Lactulose) 20 gm Q4H PO Last administered on 05/29/18at 07:58; Start 05/28/18 at 12:00; Stop 05/29/18 at 08:37; Status DC Sodium Chloride 500 ml @ 500 mls/hr 1X ONCE IV Last administered on at 12:07; Start 05/28/18 at 12:00; Stop 05/28/18 at 12:59; Status DC Sodium Chloride 1,000 ml @ 100 mls/hr Q10H IV Last administered on 05/29/18at 03:37; Start 05/28/18 at 13:00; Stop 05/29/18 at 09:11; Status DC Methylprednisolone Sodium Succinate (SOLU-Medrol 40MG VIAL) 40 mg Q8HRS IV Last administered on 05/29/18at 06:20; Start 05/28/18 at 14:00 Albuterol/ Ipratropium (Duoneb) 3 ml Q4HRS NEB Last administered on 05/29/18at 07:37; Start 05/28/18 at 16:00 Budesonide (Pulmicort) 0.5 mg RTBID NEB Last administered on 05/29/18at 07:37; Start 05/28/18 at 20:00 Piperacillin Sod/ Tazobactam Sod (Zosyn Per Pharmacy) 1 each PRN DAILY PRN MC SEE COMMENTS; Start 05/28/18 at 14:00 Piperacillin Sod/ Tazobactam Sod 3.375 gm/Sodium Chloride 50 ml @ 100 mls/hr Q6HRS IV Last administered on 05/29/18at 11:08; Start 05/28/18 at 14:00 Olanzapine (ZyPREXA ZYDIS) 2.5 mg PRN Q2HR PRN PO ANXIETY / AGITATION Last administered on 05/29/18at 10:05; Start 05/28/18 at 17:00 Morphine Sulfate (Morphine Sulfate) 2 mg PRN Q4HRS PRN IV MODERATE PAIN Last administered on 05/29/18at 10:05; Start 05/28/18 at 17:00 Morphine Sulfate (Morphine Sulfate) 4 mg PRN Q4HRS PRN IV SEVERE PAIN; Start at 17:00 Linezolid/Dextrose 300 ml @ 300 mls/hr Q12HR IV Last administered on at 07:58; Start 05/28/18 at 21:00 Norepinephrine Bitartrate 250 ml @ 1.875 mls/ hr CONT PRN IV SEE I/O RECORD Last administered on 05/29/18at 03:37; Start 05/29/18 at 01:15 Lactulose (Lactulose) 20 gm TID PO ; Start 05/29/18 at 14:00 Sodium Chloride 500 ml @ 500 mls/hr 1X ONCE IV Last administered on at 09:14; Start 05/29/18 at 09:00; Stop 05/29/18 at 09:59; Status DC Dextrose/Sodium Chloride 1,000 ml @ 100 mls/hr Q10H IV Last administered on at 11:08; Start 05/29/18 at 09:00 Active Scripts Active Aldactone (Spironolactone) 25 Mg Tablet 25 Mg PO [id number] Protonix (Pantoprazole Sodium) 40 Mg Tablet 40 Mg PO DAILYAC Reported Tums (Calcium Carbonate) 200 Mg Tab.chew 200 Mg PO PRN BID PRN Triamcinolone Acetonide 0.1% Oint (Triamcinolone Acetonide) 15 Gm Oint...g. 1 Tara TP BID MIX WITH EUCERIN DIRECTED BY PHYSICIAN Morphine Sulfate 15 Mg Tablet 15 Mg PO PRN Q8HRS PRN Lactulose 20 Gm/30 Ml Solution 20 Gm PO DAILY Furosemide 40 Mg Tablet 40 Mg PO BID Ventolin Hfa Inhaler (Albuterol Sulfate) 18 Gm Hfa.aer.ad 2 Puff INH QID Albuterol Sulfate Conc Neb Soln (Albuterol Sulfate) 2.5 Mg/0.5 Ml Vial.neb 2.5 Mg NEB TID Singulair Tablet (Montelukast Sodium) 10 Mg Tablet 1 Tab PO DAILY Norvasc (Amlodipine Besylate) 10 Mg Tablet 1 Tab PO DAILY Lisinopril 40 Mg Tablet 1 Tab PO DAILY Aspirin 81 Mg Tab.chew 1 Tab PO DAILY Allergies Allergies: Coded Allergies: No Known Drug Allergies (Unverified , 06/24/15) Physical Exam Abdomen: Other (some left inguinal fullness is soft, reducible) Vitals VITALS Vital Signs Date Time Temp Pulse Resp B/P (MAP) Pulse Ox O2 Delivery O2 Flow Rate FiO2 05/29/18 10:59 97.9 95 22 94/49 (64) 91 Nasal Cannula 1.0 97.9 Labs Labs Laboratory Tests Test 05/28/18 11:40 05/28/18 12:30 05/28/18 16:05 05/29/18 03:30 O2 Saturation 95 % (92-99) 91 % (92-99) Arterial Blood pH 7.24 (7.35-7.45) 7.37 (7.35-7.45) Arterial Blood pCO2 at Patient Temp 75 mmHg (35-46) 52 mmHg (35-46) Arterial Blood pO2 at Patient Temp 81 mmHg (65-108) 58 mmHg (65-108) Arterial Blood HCO3 31 mmol/L (21-28) 29 mmol/L (21-28) Arterial Blood Base Excess 1 mmol/L (-3-3) 3 mmol/L (-3-3) Oxyhemoglobin 92.7 % 88.7 % Methemoglobin 0.3 % (0.0-1.9) 0.2 % (0.0-1.9) Carbon Monoxide, Quantitative 2.4 % (0.0-1.9) 2.3 % (0.0-1.9) FiO2 50 30 White Blood Count 6.1 x10^3/uL (4.0-11.0) 6.7 x10^3/uL (4.0-11.0) Red Blood Count 5.40 x10^6/uL (4.30-5.70) 5.40 x10^6/uL (4.30-5.70) Hemoglobin 14.2 g/dL (13.0-17.5) 14.3 g/dL (13.0-17.5) Hematocrit 45.4 % (39.0-53.0) 45.1 % (39.0-53.0) Mean Corpuscular Volume 84 fL (79-100) 83 fL (79-100) Mean Corpuscular Hemoglobin 26 pg (25-35) 26 pg (25-35) Mean Corpuscular Hemoglobin Concent 31 g/dL (31-37) 32 g/dL (31-37) Red Cell Distribution Width 22.0 % (11.5-14.5) 22.1 % (11.5-14.5) Platelet Count 124 x10^3/uL (140-400) 119 x10^3/uL (140-400) Prothrombin Time 16.2 SEC (11.7-14.0) Prothromb Time International Ratio 1.4 (0.8-1.1) Sodium Level 144 mmol/L (136-145) 146 mmol/L (136-145) Potassium Level 5.1 mmol/L (3.5-5.1) 4.8 mmol/L (3.5-5.1) Chloride Level 109 mmol/L (98-107) 109 mmol/L (98-107) Carbon Dioxide Level 30 mmol/L (21-32) 32 mmol/L (21-32) Anion Gap 5 (6-14) 5 (6-14) Blood Urea Nitrogen 56 mg/dL (8-26) 60 mg/dL (8-26) Creatinine 1.5 mg/dL (0.7-1.3) 1.8 mg/dL (0.7-1.3) Estimated GFR (Cockcroft-Gault) 47.4 38.4 BUN/Creatinine Ratio 37 (6-20) 33 (6-20) Glucose Level 114 mg/dL (70-99) 138 mg/dL (70-99) Lactic Acid Level 1.6 mmol/L (0.4-2.0) Calcium Level 6.8 mg/dL (8.5-10.1) 7.0 mg/dL (8.5-10.1) Total Bilirubin 1.9 mg/dL (0.2-1.0) 1.9 mg/dL (0.2-1.0) Aspartate Amino Transf (AST/SGOT) 259 U/L (15-37) 279 U/L (15-37) Alanine Aminotransferase (ALT/SGPT) 51 U/L (16-63) 52 U/L (16-63) Alkaline Phosphatase 190 U/L (46-116) 186 U/L (46-116) Ammonia 87 mcmol/L (11-34) 24 mcmol/L (11-34) Total Protein 5.2 g/dL (6.4-8.2) 5.3 g/dL (6.4-8.2) Albumin 2.0 g/dL (3.4-5.0) 2.1 g/dL (3.4-5.0) Albumin/Globulin Ratio 0.6 (1.0-1.7) 0.7 (1.0-1.7) Test 05/29/18 08:20 O2 Saturation 93 % (92-99) Arterial Blood pH 7.44 (7.35-7.45) Arterial Blood pCO2 at Patient Temp 45 mmHg (35-46) Arterial Blood pO2 at Patient Temp 69 mmHg (65-108) Arterial Blood HCO3 30 mmol/L (21-28) Arterial Blood Base Excess 5 mmol/L (-3-3) FiO2 24 Laboratory Tests Test 05/28/18 12:30 05/28/18 16:05 05/29/18 03:30 05/29/18 08:20 White Blood Count 6.1 x10^3/uL (4.0-11.0) 6.7 x10^3/uL (4.0-11.0) Red Blood Count 5.40 x10^6/uL (4.30-5.70) 5.40 x10^6/uL (4.30-5.70) Hemoglobin 14.2 g/dL (13.0-17.5) 14.3 g/dL (13.0-17.5) Hematocrit 45.4 % (39.0-53.0) 45.1 % (39.0-53.0) Mean Corpuscular Volume 84 fL (79-100) 83 fL (79-100) Mean Corpuscular Hemoglobin 26 pg (25-35) 26 pg (25-35) Mean Corpuscular Hemoglobin Concent 31 g/dL (31-37) 32 g/dL (31-37) Red Cell Distribution Width 22.0 % (11.5-14.5) 22.1 % (11.5-14.5) Platelet Count 124 x10^3/uL (140-400) 119 x10^3/uL (140-400) Prothrombin Time 16.2 SEC (11.7-14.0) Prothromb Time International Ratio 1.4 (0.8-1.1) Sodium Level 144 mmol/L (136-145) 146 mmol/L (136-145) Potassium Level 5.1 mmol/L (3.5-5.1) 4.8 mmol/L (3.5-5.1) Chloride Level 109 mmol/L (98-107) 109 mmol/L (98-107) Carbon Dioxide Level 30 mmol/L (21-32) 32 mmol/L (21-32) Anion Gap 5 (6-14) 5 (6-14) Blood Urea Nitrogen 56 mg/dL (8-26) 60 mg/dL (8-26) Creatinine 1.5 mg/dL (0.7-1.3) 1.8 mg/dL (0.7-1.3) Estimated GFR (Cockcroft-Gault) 47.4 38.4 BUN/Creatinine Ratio 37 (6-20) 33 (6-20) Glucose Level 114 mg/dL (70-99) 138 mg/dL (70-99) Lactic Acid Level 1.6 mmol/L (0.4-2.0) Calcium Level 6.8 mg/dL (8.5-10.1) 7.0 mg/dL (8.5-10.1) Total Bilirubin 1.9 mg/dL (0.2-1.0) 1.9 mg/dL (0.2-1.0) Aspartate Amino Transf (AST/SGOT) 259 U/L (15-37) 279 U/L (15-37) Alanine Aminotransferase (ALT/SGPT) 51 U/L (16-63) 52 U/L (16-63) Alkaline Phosphatase 190 U/L (46-116) 186 U/L (46-116) Ammonia 87 mcmol/L (11-34) 24 mcmol/L (11-34) Total Protein 5.2 g/dL (6.4-8.2) 5.3 g/dL (6.4-8.2) Albumin 2.0 g/dL (3.4-5.0) 2.1 g/dL (3.4-5.0) Albumin/Globulin Ratio 0.6 (1.0-1.7) 0.7 (1.0-1.7) O2 Saturation 91 % (92-99) 93 % (92-99) Arterial Blood pH 7.37 (7.35-7.45) 7.44 (7.35-7.45) Arterial Blood pCO2 at Patient Temp 52 mmHg (35-46) 45 mmHg (35-46) Arterial Blood pO2 at Patient Temp 58 mmHg (65-108) 69 mmHg (65-108) Arterial Blood HCO3 29 mmol/L (21-28) 30 mmol/L (21-28) Arterial Blood Base Excess 3 mmol/L (-3-3) 5 mmol/L (-3-3) Oxyhemoglobin 88.7 % Methemoglobin 0.2 % (0.0-1.9) Carbon Monoxide, Quantitative 2.3 % (0.0-1.9) FiO2 30 24 Assessment/Plan Assessment/Plan long standing left inguinal hernia end stage liver disease no surgical recommendations at present Thanks for consult JENNIFER SUERO MD May 29, 2018 12:12
--- NOTE | 2018-05-29 12:18 | RAD ---
CT abdomen and pelvis without contrast: Reason for examination: Progressive abdominal distention and right upper quadrant pain. Comparison is made to previous study dated 06/21/2015. Helical images were obtained through the abdomen pelvis with no intravenous or oral contrast administered. Reconstruction was performed in sagittal and coronal planes. Exposure: One or more of the following individualized dose reduction techniques were utilized for this examination: 1. Automated exposure control 2. Adjustment of the mA and/or kV according to patient size 3. Use of iterative reconstruction technique. There are some patchy infiltrates or atelectasis at the right lung base. There is some atelectasis at the left lung base. There is some moderate amount of pleural fluid on the right and a small amount of pleural fluid layering posteriorly on the left. The the heart size is normal with no pericardial effusion evident. The liver shows presence of a new complex appearing mass lesion in the right lobe measuring 8 cm in greatest dimension. Malignancy cannot be excluded. There is also new generalized heterogeneous decreased density in the left lobe liver. The spleen is enlarged at 21 cm without a focal lesion. No abnormalities are seen at the adrenal glands or pancreas. Gallbladder shows cholelithiasis. The abdominal aorta shows no aneurysmal dilatation or dissection but there does show some scattered arteriosclerotic vascular calcification. No abnormality seen at the inferior vena cava. The intestinal tract shows no abnormally dilated loops of bowel or thickened bowel dover. There is no evidence of diverticulosis or diverticulitis. The small intestinal tract and stomach shows no acute abnormalities. The kidneys show no renal masses, renal calculi, hydronephrosis or evidence of obstructive uropathy. [place] catheter balloon is present in the bladder. Prostate gland and seminal vesicles show no acute abnormalities. There is a moderate amount of ascites present in the abdomen and pelvis. No free air is seen. There are postop changes in the proximal left femur. No acute bony abnormalities are seen. IMPRESSION: Bilateral pleural effusions, right greater than left. Some mild atelectasis at the left lung base. Infiltrate or atelectasis at the right lung base. New 8 cm complex lesion in the right lobe of liver suspicious of malignancy. Heterogeneous decreased density in the left lobe of liver which could be due to fatty infiltration however malignancy cannot be excluded. Splenomegaly. Cholelithiasis. Moderate amount of ascites. Electronically signed by: Celeste Sanchez MD (05/29/2018 12:15 PM) [facility]
--- NOTE | 2018-05-29 13:37 | PDOC ---
G I PROGRESS NOTE Reason for Follow-up Cirrhosis/confusion Subjective Patient off Bipap today/disoriented Physical Exam Lungs decreased BS CV S1 S2 ABD distended, +BS Review of Relevant I have reviewed the following items bree (where applicable) has been applied. Labs Laboratory Tests Test 05/28/18 11:40 05/28/18 12:30 05/28/18 16:05 05/29/18 03:30 O2 Saturation 95 % (92-99) 91 % (92-99) Arterial Blood pH 7.24 (7.35-7.45) 7.37 (7.35-7.45) Arterial Blood pCO2 at Patient Temp 75 mmHg (35-46) 52 mmHg (35-46) Arterial Blood pO2 at Patient Temp 81 mmHg (65-108) 58 mmHg (65-108) Arterial Blood HCO3 31 mmol/L (21-28) 29 mmol/L (21-28) Arterial Blood Base Excess 1 mmol/L (-3-3) 3 mmol/L (-3-3) Oxyhemoglobin 92.7 % 88.7 % Methemoglobin 0.3 % (0.0-1.9) 0.2 % (0.0-1.9) Carbon Monoxide, Quantitative 2.4 % (0.0-1.9) 2.3 % (0.0-1.9) FiO2 50 30 White Blood Count 6.1 x10^3/uL (4.0-11.0) 6.7 x10^3/uL (4.0-11.0) Red Blood Count 5.40 x10^6/uL (4.30-5.70) 5.40 x10^6/uL (4.30-5.70) Hemoglobin 14.2 g/dL (13.0-17.5) 14.3 g/dL (13.0-17.5) Hematocrit 45.4 % (39.0-53.0) 45.1 % (39.0-53.0) Mean Corpuscular Volume 84 fL (79-100) 83 fL (79-100) Mean Corpuscular Hemoglobin 26 pg (25-35) 26 pg (25-35) Mean Corpuscular Hemoglobin Concent 31 g/dL (31-37) 32 g/dL (31-37) Red Cell Distribution Width 22.0 % (11.5-14.5) 22.1 % (11.5-14.5) Platelet Count 124 x10^3/uL (140-400) 119 x10^3/uL (140-400) Prothrombin Time 16.2 SEC (11.7-14.0) Prothromb Time International Ratio 1.4 (0.8-1.1) Sodium Level 144 mmol/L (136-145) 146 mmol/L (136-145) Potassium Level 5.1 mmol/L (3.5-5.1) 4.8 mmol/L (3.5-5.1) Chloride Level 109 mmol/L (98-107) 109 mmol/L (98-107) Carbon Dioxide Level 30 mmol/L (21-32) 32 mmol/L (21-32) Anion Gap 5 (6-14) 5 (6-14) Blood Urea Nitrogen 56 mg/dL (8-26) 60 mg/dL (8-26) Creatinine 1.5 mg/dL (0.7-1.3) 1.8 mg/dL (0.7-1.3) Estimated GFR (Cockcroft-Gault) 47.4 38.4 BUN/Creatinine Ratio 37 (6-20) 33 (6-20) Glucose Level 114 mg/dL (70-99) 138 mg/dL (70-99) Lactic Acid Level 1.6 mmol/L (0.4-2.0) Calcium Level 6.8 mg/dL (8.5-10.1) 7.0 mg/dL (8.5-10.1) Total Bilirubin 1.9 mg/dL (0.2-1.0) 1.9 mg/dL (0.2-1.0) Aspartate Amino Transf (AST/SGOT) 259 U/L (15-37) 279 U/L (15-37) Alanine Aminotransferase (ALT/SGPT) 51 U/L (16-63) 52 U/L (16-63) Alkaline Phosphatase 190 U/L (46-116) 186 U/L (46-116) Ammonia 87 mcmol/L (11-34) 24 mcmol/L (11-34) Total Protein 5.2 g/dL (6.4-8.2) 5.3 g/dL (6.4-8.2) Albumin 2.0 g/dL (3.4-5.0) 2.1 g/dL (3.4-5.0) Albumin/Globulin Ratio 0.6 (1.0-1.7) 0.7 (1.0-1.7) Test 05/29/18 08:20 O2 Saturation 93 % (92-99) Arterial Blood pH 7.44 (7.35-7.45) Arterial Blood pCO2 at Patient Temp 45 mmHg (35-46) Arterial Blood pO2 at Patient Temp 69 mmHg (65-108) Arterial Blood HCO3 30 mmol/L (21-28) Arterial Blood Base Excess 5 mmol/L (-3-3) FiO2 24 Laboratory Tests Test 05/28/18 16:05 05/29/18 03:30 05/29/18 08:20 O2 Saturation 91 % (92-99) 93 % (92-99) Arterial Blood pH 7.37 (7.35-7.45) 7.44 (7.35-7.45) Arterial Blood pCO2 at Patient Temp 52 mmHg (35-46) 45 mmHg (35-46) Arterial Blood pO2 at Patient Temp 58 mmHg (65-108) 69 mmHg (65-108) Arterial Blood HCO3 29 mmol/L (21-28) 30 mmol/L (21-28) Arterial Blood Base Excess 3 mmol/L (-3-3) 5 mmol/L (-3-3) Oxyhemoglobin 88.7 % Methemoglobin 0.2 % (0.0-1.9) Carbon Monoxide, Quantitative 2.3 % (0.0-1.9) FiO2 30 24 White Blood Count 6.7 x10^3/uL (4.0-11.0) Red Blood Count 5.40 x10^6/uL (4.30-5.70) Hemoglobin 14.3 g/dL (13.0-17.5) Hematocrit 45.1 % (39.0-53.0) Mean Corpuscular Volume 83 fL (79-100) Mean Corpuscular Hemoglobin 26 pg (25-35) Mean Corpuscular Hemoglobin Concent 32 g/dL (31-37) Red Cell Distribution Width 22.1 % (11.5-14.5) Platelet Count 119 x10^3/uL (140-400) Sodium Level 146 mmol/L (136-145) Potassium Level 4.8 mmol/L (3.5-5.1) Chloride Level 109 mmol/L (98-107) Carbon Dioxide Level 32 mmol/L (21-32) Anion Gap 5 (6-14) Blood Urea Nitrogen 60 mg/dL (8-26) Creatinine 1.8 mg/dL (0.7-1.3) Estimated GFR (Cockcroft-Gault) 38.4 BUN/Creatinine Ratio 33 (6-20) Glucose Level 138 mg/dL (70-99) Calcium Level 7.0 mg/dL (8.5-10.1) Total Bilirubin 1.9 mg/dL (0.2-1.0) Aspartate Amino Transf (AST/SGOT) 279 U/L (15-37) Alanine Aminotransferase (ALT/SGPT) 52 U/L (16-63) Alkaline Phosphatase 186 U/L (46-116) Ammonia 24 mcmol/L (11-34) Total Protein 5.3 g/dL (6.4-8.2) Albumin 2.1 g/dL (3.4-5.0) Albumin/Globulin Ratio 0.7 (1.0-1.7) Medications Current Medications Pantoprazole Sodium (Protonix) 40 mg DAILYAC PO Last administered on 05/29/18at 07:58; Start 05/28/18 at 12:30 Albuterol Sulfate (Ventolin Neb Soln) 2.5 mg TID NEB Last administered on at 13:02; Start 05/28/18 at 14:00; Stop 05/28/18 at 14:03; Status DC Montelukast Sodium (Singulair) 10 mg DAILY PO Last administered on 05/29/18at 07 :58; Start 05/28/18 at 12:30 Lactulose (Lactulose) 20 gm Q4H PO Last administered on 05/29/18at 07:58; Start 05/28/18 at 12:00; Stop 05/29/18 at 08:37; Status DC Sodium Chloride 500 ml @ 500 mls/hr 1X ONCE IV Last administered on at 12:07; Start 05/28/18 at 12:00; Stop 05/28/18 at 12:59; Status DC Sodium Chloride 1,000 ml @ 100 mls/hr Q10H IV Last administered on 05/29/18at 03:37; Start 05/28/18 at 13:00; Stop 05/29/18 at 09:11; Status DC Methylprednisolone Sodium Succinate (SOLU-Medrol 40MG VIAL) 40 mg Q8HRS IV Last administered on 05/29/18at 12:45; Start 05/28/18 at 14:00 Albuterol/ Ipratropium (Duoneb) 3 ml Q4HRS NEB Last administered on 05/29/18at 12:09; Start 05/28/18 at 16:00 Budesonide (Pulmicort) 0.5 mg RTBID NEB Last administered on 05/29/18at 07:37; Start 05/28/18 at 20:00 Piperacillin Sod/ Tazobactam Sod (Zosyn Per Pharmacy) 1 each PRN DAILY PRN MC SEE COMMENTS; Start 05/28/18 at 14:00 Piperacillin Sod/ Tazobactam Sod 3.375 gm/Sodium Chloride 50 ml @ 100 mls/hr Q6HRS IV Last administered on 05/29/18at 11:08; Start 05/28/18 at 14:00 Olanzapine (ZyPREXA ZYDIS) 2.5 mg PRN Q2HR PRN PO ANXIETY / AGITATION Last administered on 05/29/18at 10:05; Start 05/28/18 at 17:00 Morphine Sulfate (Morphine Sulfate) 2 mg PRN Q4HRS PRN IV MODERATE PAIN Last administered on 05/29/18at 10:05; Start 05/28/18 at 17:00 Morphine Sulfate (Morphine Sulfate) 4 mg PRN Q4HRS PRN IV SEVERE PAIN; Start at 17:00 Linezolid/Dextrose 300 ml @ 300 mls/hr Q12HR IV Last administered on at 07:58; Start 05/28/18 at 21:00 Norepinephrine Bitartrate 250 ml @ 1.875 mls/ hr CONT PRN IV SEE I/O RECORD Last administered on 05/29/18at 03:37; Start 05/29/18 at 01:15 Lactulose (Lactulose) 20 gm TID PO Last administered on 05/29/18at 12:45; Start 05/29/18 at 14:00 Sodium Chloride 500 ml @ 500 mls/hr 1X ONCE IV Last administered on at 09:14; Start 05/29/18 at 09:00; Stop 05/29/18 at 09:59; Status DC Dextrose/Sodium Chloride 1,000 ml @ 100 mls/hr Q10H IV Last administered on at 11:08; Start 05/29/18 at 09:00 Active Scripts Active Aldactone (Spironolactone) 25 Mg Tablet 25 Mg PO [id number] Protonix (Pantoprazole Sodium) 40 Mg Tablet 40 Mg PO DAILYAC Reported Tums (Calcium Carbonate) 200 Mg Tab.chew 200 Mg PO PRN BID PRN Triamcinolone Acetonide 0.1% Oint (Triamcinolone Acetonide) 15 Gm Oint...g. 1 Tara TP BID MIX WITH EUCERIN DIRECTED BY PHYSICIAN Morphine Sulfate 15 Mg Tablet 15 Mg PO PRN Q8HRS PRN Lactulose 20 Gm/30 Ml Solution 20 Gm PO DAILY Furosemide 40 Mg Tablet 40 Mg PO BID Ventolin Hfa Inhaler (Albuterol Sulfate) 18 Gm Hfa.aer.ad 2 Puff INH QID Albuterol Sulfate Conc Neb Soln (Albuterol Sulfate) 2.5 Mg/0.5 Ml Vial.neb 2.5 Mg NEB TID Singulair Tablet (Montelukast Sodium) 10 Mg Tablet 1 Tab PO DAILY Norvasc (Amlodipine Besylate) 10 Mg Tablet 1 Tab PO DAILY Lisinopril 40 Mg Tablet 1 Tab PO DAILY Aspirin 81 Mg Tab.chew 1 Tab PO DAILY Vitals/I & O Vital Sign - Last 24 Hours 05/28/18 05/28/18 05/28/18 05/28/18 14:00 15:00 15:27 16:00 Temp 97.2 97.2 Pulse 82 84 Resp 24 24 B/P (MAP) 88/54 (65) 92/46 (61) Pulse Ox 93 95 97 O2 Delivery BiPAP/CPAP BiPAP/CPAP BiPAP/CPAP Bi-pap 05/28/18 05/28/18 05/28/18 05/28/18 16:00 17:02 17:06 17:08 Pulse 85 85 Resp 24 24 24 B/P (MAP) 88/54 (65) 92/54 (67) Pulse Ox 93 90 96 90 O2 Delivery BiPAP/CPAP BiPAP/CPAP BiPAP/CPAP BiPAP/CPAP 05/28/18 05/28/18 05/28/18 05/28/18 18:00 19:00 19:34 19:59 Pulse 85 90 Resp 24 22 B/P (MAP) 91/54 (66) 76/48 (57) Pulse Ox 90 91 96 O2 Delivery BiPAP/CPAP BiPAP/CPAP Bi-pap BiPAP/CPAP 05/28/18 05/28/18 05/28/18 05/28/18 20:00 21:00 21:40 22:00 Temp 98.6 98.6 Pulse 89 92 88 Resp 24 24 B/P (MAP) 85/49 (61) 84/47 (59) 74/46 (55) Pulse Ox 96 95 94 94 O2 Delivery BiPAP/CPAP BiPAP/CPAP BiPAP/CPAP BiPAP/CPAP 05/28/18 05/28/18 05/28/18 05/29/18 23:00 23:45 23:50 00:00 Pulse 86 90 Resp B/P (MAP) 78/46 (57) 93/58 (70) Pulse Ox 93 95 95 O2 Delivery BiPAP/CPAP Bi-pap BiPAP/CPAP BiPAP/CPAP 05/29/18 05/29/18 05/29/18 05/29/18 01:00 02:00 02:27 03:10 Temp 98.3 98.3 Pulse 82 84 Resp 22 B/P (MAP) 74/49 (57) 80/55 (63) Pulse Ox 94 95 95 95 O2 Delivery BiPAP/CPAP BiPAP/CPAP BiPAP/CPAP BiPAP/CPAP 05/29/18 05/29/18 05/29/18 05/29/18 03:30 04:00 04:01 05:00 Temp 97.9 97.9 Pulse 81 85 Resp 22 B/P (MAP) 93/42 (59) 82/58 (66) 95/58 (70) Pulse Ox 95 92 O2 Delivery BiPAP/CPAP Bi-pap Nasal Cannula O2 Flow Rate 2.0 05/29/18 05/29/18 05/29/18 05/29/18 06:00 07:00 07:47 08:00 Temp 97.8 97.8 Pulse 84 79 77 Resp 22 B/P (MAP) 102/55 (71) 87/46 (60) 91/50 (64) Pulse Ox 95 92 95 O2 Delivery Nasal Cannula Nasal Cannula Nasal Cannula Nasal Cannula O2 Flow Rate 2.0 1.0 1.0 1.0 05/29/18 05/29/18 05/29/18 05/29/18 08:10 09:00 10:00 10:05 Pulse 90 95 Resp 22 20 B/P (MAP) 98/52 (67) 96/54 (68) Pulse Ox 95 99 92 99 O2 Delivery Nasal Cannula Nasal Cannula Nasal Cannula Nasal Cannula O2 Flow Rate 1.0 1.0 1.0 1.0 05/29/18 05/29/18 05/29/18 05/29/18 10:35 10:59 12:00 12:00 Temp 97.9 97.9 Pulse 95 96 Resp 22 22 20 B/P (MAP) 94/49 (64) 95/54 (68) Pulse Ox 91 91 92 O2 Delivery Nasal Cannula Nasal Cannula Nasal Cannula Nasal Cannula O2 Flow Rate 1.0 1.0 1.0 1.0 05/29/18 05/29/18 12:10 13:00 Pulse 90 Resp 20 B/P (MAP) 116/64 (81) Pulse Ox 89 O2 Delivery Nasal Cannula Nasal Cannula O2 Flow Rate 1.0 1.0 Intake and Output 05/28/18 05/28/18 05/29/18 15:00 23:00 07:00 Intake Total 550 ml 540 ml Output Total 100 ml 115 ml 160 ml Balance 450 ml 425 ml -160 ml Problem List Cirrhosis- with hep c ,hcc, and hepatic encephalopathy, await disposition plans , prognosis guarded NATHEN BAUER MD May 29, 2018 13:37
[2018-05-29] MEDS: MORPHINE SULFATE 4 MG/ML VIAL. IV PRN (21:04)
--- NOTE | 2018-05-29 22:59 | PN ---
DATE: 05/29/2018 SUBJECTIVE: The patient is resting slightly propped up in bed, definitely more awake and alert, asking to drink water and eat. Continues to have abdominal pain. PHYSICAL EXAMINATION: GENERAL: When I examined him, he looked pale, jaundiced, but not cyanosed. No lymphadenopathy, no thyromegaly. No jugular venous distension. No lower limb edema. VITAL SIGNS: His heart rate was 79, blood pressure was 87/46, temperature was 97.8, respiratory rate was 22 and oxygen saturation was 95% on 1 liter of oxygen. HEAD, EYES, EARS, NOSE AND THROAT: Showed normocephalic, atraumatic. He has a Dobhoff catheter. He has an NG tube in the right nostril. NECK: Supple. HEART: Showed normal first and second heart sounds with no gallop, rub or murmur. CHEST: Clear to auscultation. No crepitation or rhonchi. ABDOMEN: Distended, soft. Some tenderness mostly in the right upper quadrant. No guarding or rigidity. No organomegaly. He has a small umbilical hernia that is easily reducible. He has also left inguinal hernia that is reducible. NEUROLOGIC: He is definitely more awake, alert, responding appropriately. All his cranial nerves are intact. He moves extremities without difficulty. INS AND OUTS: His intake over the last 24 hours was 1090, output was 350. LABORATORY DATA: As of this morning, his serum sodium was 146, potassium 4.8, chloride 108, bicarbonate 32, anion gap of 5, BUN 60, creatinine was 1.8, estimated GFR was 38 mL per minute, his glucose 138, calcium was 7. Total bilirubin 1.9, AST and alkaline phosphatase are elevated. ALT is normal. His ammonia is down to 24 micromole per liter. Total protein was 5.3, albumin 2.1. His prothrombin time was 16.2, INR 1.4. White cell count was 6700, hemoglobin 14.3, hematocrit 45, MCV 83 and platelet count of 119,000. ASSESSMENT: 1. Acute on chronic hypoxic hypercapnic respiratory failure, resolved. His blood gas this morning showed that his pH was 7.37, pCO2 of 52, pO2 of 58, bicarbonate was 29 and his oxygen saturation was 91% on FiO2 of 30%. 2. Liver cirrhosis with portal hypertension and esophageal varices due to chronic hepatitis C. 3. Hepatic encephalopathy, resolved. His ammonia is down from 87 to 24. 4. Acute on chronic kidney injury. His creatinine has risen from 1.5 to 1.8. 5. Hypernatremia. 6. Hepatocellular carcinoma versus metastatic cancer to the liver. 7. Chronic obstructive pulmonary disease. PLAN: To cut down his lactulose to three times a day. Continue with the IV antibiotic empirically. The patient is more awake, alert now we can start feeding him. I will repeat all his lab works tomorrow and hopefully we will be able talk [facility] and if he remains stable, he might be able to be discharged back and/or consider hospice care given his overall poor prognosis. MARGARITO TONEY MD DR: HILDA/grace JOB#: [id number] / [id number]
[2018-05-30] VITALS (24 sets, daily range): BP systolic 78–172; BP diastolic 48–67
[2018-05-30] MEDS: IPRATRPIUM/ALBUTEROL 0.5/2.5MG 3 ML NEBU. NEB SCH ×7 (00:05→23:30)
[2018-05-30] MEDS: PIPERACILLIN/TAZOBACTAM 3.375 GM in IV NORMAL SALINE 50ML 50 ML IV SCH ×4 (00:19→16:50)
[2018-05-30] MEDS: MORPHINE SULFATE 4 MG/ML VIAL. IV PRN (00:19)
[2018-05-30] MEDS: IV DEXTROSE 5 %-0.2 % NACL 1,000 ML IV SCH ×2 (06:05→15:00)
[2018-05-30] MEDS: methylPREDNISolone SOD SUCC PF 40 MG/ML VIAL. IV SCH ×3 (06:05→21:45)
--- NOTE | 2018-05-30 07:54 | PDOC ---
Infectious Disease Note Subjective Subjective awake, says is ok, some abd pain ROS ROS no n/v/d/sob Vital Sign Vital Signs Vital Signs Date Time Temp Pulse Resp B/P (MAP) Pulse Ox O2 Delivery O2 Flow Rate FiO2 05/30/18 06:00 88 10 85/54 (64) 98 Nasal Cannula 2.0 05/30/18 04:00 98.0 98.0 Physical Exam PHYSICAL EXAM GENERAL: Lying down, alert, yelling out for nurse HENT: NGT LUNGS: CTAB anteriorly CV: S1 S2 ABDOMEN: Distended, soft, NT to light palpation : Indwelling [place] EXT: Chronic stasis changes and a few scabs lower extremities bilaterally, + wrinkles SKIN: Warm, no rash. Multiple tattoos PIVs die cleaner nad Labs Lab Laboratory Tests Test 05/29/18 08:20 O2 Saturation 93 % (92-99) Arterial Blood pH 7.44 (7.35-7.45) Arterial Blood pCO2 at Patient Temp 45 mmHg (35-46) Arterial Blood pO2 at Patient Temp 69 mmHg (65-108) Arterial Blood HCO3 30 mmol/L (21-28) Arterial Blood Base Excess 5 mmol/L (-3-3) FiO2 24 Micro BC neg Objective Assessment 1. Bilateral interstitial opacities. 2. Acute respiratory failure. 3. Acute kidney injury. 4. Small-bowel obstruction versus ileus. 5. Hepatic encephalopathy. 6. Hepatocellular carcinoma. 7. Hepatitis C. 8. Chronic obstructive pulmonary disease. 9. Chronic venous stasis. 10. History of IV drug use. 11. Incarceration. Plan Plan of Care empiric Zosyn and Zyvox BC NGTD ([facility]) Monitor labs/platelets Supportive care No family available Full code D/w RN prognosis poor CYRUS GUTIERREZ MD May 30, 2018 07:54
[2018-05-30] MEDS: LACTULOSE 20 GM/30 ML SOLUTION. PO SCH ×3 (08:37→21:44)
[2018-05-30] MEDS: MONTELUKAST SODIUM 10 MG TABLET. PO SCH (08:37)
[2018-05-30] MEDS: PANTOPRAZOLE 40 MG TABLET.DR. PO SCH (08:37)
[2018-05-30] MEDS: BUDESONIDE 0.5 MG/2 ML NEBU. NEB SCH ×2 (08:59→19:54)
[2018-05-30] MEDS ORDERED: FUROSEMIDE 20 MG/2 ML VIAL. IVP ONE (09:30)
[2018-05-30 10:16] LABS: HEMATOCRIT 49.7 % (39.0-53.0); HEMOGLOBIN 15.6 g/dL (13.0-17.5); RED BLOOD COUNT 5.9 x10^6/uL (4.30-5.70); RED CELL DISTRIBUTION WIDTH 22.9 % (11.5-14.5); WHITE BLOOD COUNT 9.6 x10^3/uL (4.0-11.0)
[2018-05-30 10:42] LABS: ALBUMIN 2.4 g/dL (3.4-5.0); ALBUMIN/GLOBULIN RATIO 0.6 (1.0-1.7); CALCIUM 7.1 mg/dL (8.5-10.1); CREATININE 1.7 mg/dL (0.7-1.3); TOTAL BILIRUBIN 2.1 mg/dL (0.2-1.0); TOTAL PROTEIN 6.2 g/dL (6.4-8.2)
--- NOTE | 2018-05-30 10:51 | PDOC ---
PULMONARY PROGRESS NOTES Subjective less soa, disorientated Vitals Vital Signs Date Time Temp Pulse Resp B/P (MAP) Pulse Ox O2 Delivery O2 Flow Rate FiO2 05/30/18 10:00 104 19 98/58 (71) 98 Nasal Cannula 2.0 05/30/18 08:00 98.1 98.1 General: No acute distress Lungs: Other (decrease bs) Cardiovascular: S1, S2 Abdomen: Soft, Non-tender Extremities: Other (trace edema) Labs Laboratory Tests Test 05/28/18 11:15 05/28/18 11:40 05/28/18 12:30 05/28/18 16:05 Nasal Screen MRSA (PCR) Negative (Negative) O2 Saturation 95 % (92-99) 91 % (92-99) Arterial Blood pH 7.24 (7.35-7.45) 7.37 (7.35-7.45) Arterial Blood pCO2 at Patient Temp 75 mmHg (35-46) 52 mmHg (35-46) Arterial Blood pO2 at Patient Temp 81 mmHg (65-108) 58 mmHg (65-108) Arterial Blood HCO3 31 mmol/L (21-28) 29 mmol/L (21-28) Arterial Blood Base Excess 1 mmol/L (-3-3) 3 mmol/L (-3-3) Oxyhemoglobin 92.7 % 88.7 % Methemoglobin 0.3 % (0.0-1.9) 0.2 % (0.0-1.9) Carbon Monoxide, Quantitative 2.4 % (0.0-1.9) 2.3 % (0.0-1.9) FiO2 50 30 White Blood Count 6.1 x10^3/uL (4.0-11.0) Red Blood Count 5.40 x10^6/uL (4.30-5.70) Hemoglobin 14.2 g/dL (13.0-17.5) Hematocrit 45.4 % (39.0-53.0) Mean Corpuscular Volume 84 fL (79-100) Mean Corpuscular Hemoglobin 26 pg (25-35) Mean Corpuscular Hemoglobin Concent 31 g/dL (31-37) Red Cell Distribution Width 22.0 % (11.5-14.5) Platelet Count 124 x10^3/uL (140-400) Prothrombin Time 16.2 SEC (11.7-14.0) Prothromb Time International Ratio 1.4 (0.8-1.1) Sodium Level 144 mmol/L (136-145) Potassium Level 5.1 mmol/L (3.5-5.1) Chloride Level 109 mmol/L (98-107) Carbon Dioxide Level 30 mmol/L (21-32) Anion Gap 5 (6-14) Blood Urea Nitrogen 56 mg/dL (8-26) Creatinine 1.5 mg/dL (0.7-1.3) Estimated GFR (Cockcroft-Gault) 47.4 BUN/Creatinine Ratio 37 (6-20) Glucose Level 114 mg/dL (70-99) Lactic Acid Level 1.6 mmol/L (0.4-2.0) Calcium Level 6.8 mg/dL (8.5-10.1) Total Bilirubin 1.9 mg/dL (0.2-1.0) Aspartate Amino Transf (AST/SGOT) 259 U/L (15-37) Alanine Aminotransferase (ALT/SGPT) 51 U/L (16-63) Alkaline Phosphatase 190 U/L (46-116) Ammonia 87 mcmol/L (11-34) Total Protein 5.2 g/dL (6.4-8.2) Albumin 2.0 g/dL (3.4-5.0) Albumin/Globulin Ratio 0.6 (1.0-1.7) Test 05/29/18 03:30 05/29/18 08:20 05/30/18 10:00 White Blood Count 6.7 x10^3/uL (4.0-11.0) 9.6 x10^3/uL (4.0-11.0) Red Blood Count 5.40 x10^6/uL (4.30-5.70) 5.90 x10^6/uL (4.30-5.70) Hemoglobin 14.3 g/dL (13.0-17.5) 15.6 g/dL (13.0-17.5) Hematocrit 45.1 % (39.0-53.0) 49.7 % (39.0-53.0) Mean Corpuscular Volume 83 fL (79-100) 84 fL (79-100) Mean Corpuscular Hemoglobin 26 pg (25-35) 26 pg (25-35) Mean Corpuscular Hemoglobin Concent 32 g/dL (31-37) 31 g/dL (31-37) Red Cell Distribution Width 22.1 % (11.5-14.5) 22.9 % (11.5-14.5) Platelet Count 119 x10^3/uL (140-400) 132 x10^3/uL (140-400) Sodium Level 146 mmol/L (136-145) 143 mmol/L (136-145) Potassium Level 4.8 mmol/L (3.5-5.1) 4.0 mmol/L (3.5-5.1) Chloride Level 109 mmol/L (98-107) 106 mmol/L (98-107) Carbon Dioxide Level 32 mmol/L (21-32) 31 mmol/L (21-32) Anion Gap 5 (6-14) 6 (6-14) Blood Urea Nitrogen 60 mg/dL (8-26) 58 mg/dL (8-26) Creatinine 1.8 mg/dL (0.7-1.3) 1.7 mg/dL (0.7-1.3) Estimated GFR (Cockcroft-Gault) 38.4 41.0 BUN/Creatinine Ratio 33 (6-20) 34 (6-20) Glucose Level 138 mg/dL (70-99) 119 mg/dL (70-99) Calcium Level 7.0 mg/dL (8.5-10.1) 7.1 mg/dL (8.5-10.1) Total Bilirubin 1.9 mg/dL (0.2-1.0) 2.1 mg/dL (0.2-1.0) Aspartate Amino Transf (AST/SGOT) 279 U/L (15-37) 216 U/L (15-37) Alanine Aminotransferase (ALT/SGPT) 52 U/L (16-63) 49 U/L (16-63) Alkaline Phosphatase 186 U/L (46-116) 225 U/L (46-116) Ammonia 24 mcmol/L (11-34) < 10 mcmol/L (11-34) Total Protein 5.3 g/dL (6.4-8.2) 6.2 g/dL (6.4-8.2) Albumin 2.1 g/dL (3.4-5.0) 2.4 g/dL (3.4-5.0) Albumin/Globulin Ratio 0.7 (1.0-1.7) 0.6 (1.0-1.7) O2 Saturation 93 % (92-99) Arterial Blood pH 7.44 (7.35-7.45) Arterial Blood pCO2 at Patient Temp 45 mmHg (35-46) Arterial Blood pO2 at Patient Temp 69 mmHg (65-108) Arterial Blood HCO3 30 mmol/L (21-28) Arterial Blood Base Excess 5 mmol/L (-3-3) FiO2 24 Laboratory Tests Test 05/30/18 10:00 White Blood Count 9.6 x10^3/uL (4.0-11.0) Red Blood Count 5.90 x10^6/uL (4.30-5.70) Hemoglobin 15.6 g/dL (13.0-17.5) Hematocrit 49.7 % (39.0-53.0) Mean Corpuscular Volume 84 fL (79-100) Mean Corpuscular Hemoglobin 26 pg (25-35) Mean Corpuscular Hemoglobin Concent 31 g/dL (31-37) Red Cell Distribution Width 22.9 % (11.5-14.5) Platelet Count 132 x10^3/uL (140-400) Sodium Level 143 mmol/L (136-145) Potassium Level 4.0 mmol/L (3.5-5.1) Chloride Level 106 mmol/L (98-107) Carbon Dioxide Level 31 mmol/L (21-32) Anion Gap 6 (6-14) Blood Urea Nitrogen 58 mg/dL (8-26) Creatinine 1.7 mg/dL (0.7-1.3) Estimated GFR (Cockcroft-Gault) 41.0 BUN/Creatinine Ratio 34 (6-20) Glucose Level 119 mg/dL (70-99) Calcium Level 7.1 mg/dL (8.5-10.1) Total Bilirubin 2.1 mg/dL (0.2-1.0) Aspartate Amino Transf (AST/SGOT) 216 U/L (15-37) Alanine Aminotransferase (ALT/SGPT) 49 U/L (16-63) Alkaline Phosphatase 225 U/L (46-116) Ammonia < 10 mcmol/L (11-34) Total Protein 6.2 g/dL (6.4-8.2) Albumin 2.4 g/dL (3.4-5.0) Albumin/Globulin Ratio 0.6 (1.0-1.7) Medications Active Scripts Medications Dose Route/Sig Max Daily Dose Days Date Category Dose Instructions Tums (Calcium Carbonate) 200 Mg Tab.chew 200 Mg PO PRN BID PRN 05/28/18 Reported Triamcinolone Acetonide 0.1% Oint (Triamcinolone Acetonide) 15 Gm Oint...g. 1 Tara TP BID 05/28/18 Reported MIX WITH EUCERIN DIRECTED BY PHYSICIAN Morphine Sulfate 15 Mg Tablet 15 Mg PO PRN Q8HRS PRN 05/28/18 Reported Lactulose 20 Gm/30 Ml Solution 20 Gm PO DAILY 05/28/18 Reported Furosemide 40 Mg Tablet 40 Mg PO BID 05/28/18 Reported Aldactone (Spironolactone) 25 Mg Tablet 25 Mg PO [id number] 06/28/15 Rx Protonix (Pantoprazole Sodium) 40 Mg Tablet 40 Mg PO DAILYAC 06/28/15 Rx Ventolin Hfa Inhaler (Albuterol Sulfate) 18 Gm Hfa.aer.ad 2 Puff INH QID 06/17/15 Reported Albuterol Sulfate Conc Neb Soln (Albuterol Sulfate) 2.5 Mg/0.5 Ml Vial.neb 2.5 Mg NEB TID 06/17/15 Reported Singulair Tablet (Montelukast Sodium) 10 Mg Tablet 1 Tab PO DAILY 06/17/15 Reported Norvasc (Amlodipine Besylate) 10 Mg Tablet 1 Tab PO DAILY 06/17/15 Reported Lisinopril 40 Mg Tablet 1 Tab PO DAILY 06/17/15 Reported Aspirin 81 Mg Tab.chew 1 Tab PO DAILY 06/17/15 Reported Impression . 1. Acute hypoxemic respiratory failure, multifactorial in etiology including pneumonia RLL, acute exacerbation of chronic obstructive pulmonary disease 2. Abnormal chest x-ray./ ct abdomen with small RLL effusion/ infiltrate RLL 3. Pneumonia. 4. Acute exacerbation of chronic obstructive pulmonary disease. 5. Hepatitis C. 6. Hepatocellular carcinoma. 7. Hepatic encephalopathy, improving. 8. Thrombocytopenia. 9. Acute kidney injury. 10. Sepsis. Plan . 1. Titrate FiO2 to keep O2 saturation 92%. 2. BiPAP p.r.n., Nasal canula 3. Bronchodilator. 4. Inhaled corticosteroid. 5. Solu-Medrol , taper 6. Continue antibiotic. Follow up cultures. ID is on the case. 7. off pressors . keep mean arterial pressure more than 65. 8. Elevate head of bed. 9. Lower extremity venous Doppler negative 10. Protonix for stress ulcer prophylaxis. 11. transfer to floor. palliative care to discuss goals of care GIOVANI LOWRY MD May 30, 2018 10:51
--- NOTE | 2018-05-30 11:20 | PDOC ---
HERNAN SPENCE DIRECTOR OF ONCOLOGY 05/30/18 1120: SURGICAL PROGRESS NOTE Subjective tight across abdomen, some pain to RLQ no vomiting, currently eating some Ice cream Vital Signs Vital Signs Date Time Temp Pulse Resp B/P (MAP) Pulse Ox O2 Delivery O2 Flow Rate FiO2 05/30/18 10:00 104 19 98/58 (71) 98 Nasal Cannula 2.0 05/30/18 08:00 98.1 98.1 I&O Intake and Output 05/30/18 07:01 Intake Total 4985 ml Output Total 1815 ml Balance 3170 ml Intake Oral 1470 ml IV Total 3515 ml Output Urine Total 715 ml Stool Total 1100 ml General: Alert, Oriented X3, Cooperative, No acute distress Abdomen: Other (distended ) Labs Laboratory Tests Test 05/28/18 11:40 05/28/18 12:30 05/28/18 16:05 05/29/18 03:30 O2 Saturation 95 % (92-99) 91 % (92-99) Arterial Blood pH 7.24 (7.35-7.45) 7.37 (7.35-7.45) Arterial Blood pCO2 at Patient Temp 75 mmHg (35-46) 52 mmHg (35-46) Arterial Blood pO2 at Patient Temp 81 mmHg (65-108) 58 mmHg (65-108) Arterial Blood HCO3 31 mmol/L (21-28) 29 mmol/L (21-28) Arterial Blood Base Excess 1 mmol/L (-3-3) 3 mmol/L (-3-3) Oxyhemoglobin 92.7 % 88.7 % Methemoglobin 0.3 % (0.0-1.9) 0.2 % (0.0-1.9) Carbon Monoxide, Quantitative 2.4 % (0.0-1.9) 2.3 % (0.0-1.9) FiO2 50 30 White Blood Count 6.1 x10^3/uL (4.0-11.0) 6.7 x10^3/uL (4.0-11.0) Red Blood Count 5.40 x10^6/uL (4.30-5.70) 5.40 x10^6/uL (4.30-5.70) Hemoglobin 14.2 g/dL (13.0-17.5) 14.3 g/dL (13.0-17.5) Hematocrit 45.4 % (39.0-53.0) 45.1 % (39.0-53.0) Mean Corpuscular Volume 84 fL (79-100) 83 fL (79-100) Mean Corpuscular Hemoglobin 26 pg (25-35) 26 pg (25-35) Mean Corpuscular Hemoglobin Concent 31 g/dL (31-37) 32 g/dL (31-37) Red Cell Distribution Width 22.0 % (11.5-14.5) 22.1 % (11.5-14.5) Platelet Count 124 x10^3/uL (140-400) 119 x10^3/uL (140-400) Prothrombin Time 16.2 SEC (11.7-14.0) Prothromb Time International Ratio 1.4 (0.8-1.1) Sodium Level 144 mmol/L (136-145) 146 mmol/L (136-145) Potassium Level 5.1 mmol/L (3.5-5.1) 4.8 mmol/L (3.5-5.1) Chloride Level 109 mmol/L (98-107) 109 mmol/L (98-107) Carbon Dioxide Level 30 mmol/L (21-32) 32 mmol/L (21-32) Anion Gap 5 (6-14) 5 (6-14) Blood Urea Nitrogen 56 mg/dL (8-26) 60 mg/dL (8-26) Creatinine 1.5 mg/dL (0.7-1.3) 1.8 mg/dL (0.7-1.3) Estimated GFR (Cockcroft-Gault) 47.4 38.4 BUN/Creatinine Ratio 37 (6-20) 33 (6-20) Glucose Level 114 mg/dL (70-99) 138 mg/dL (70-99) Lactic Acid Level 1.6 mmol/L (0.4-2.0) Calcium Level 6.8 mg/dL (8.5-10.1) 7.0 mg/dL (8.5-10.1) Total Bilirubin 1.9 mg/dL (0.2-1.0) 1.9 mg/dL (0.2-1.0) Aspartate Amino Transf (AST/SGOT) 259 U/L (15-37) 279 U/L (15-37) Alanine Aminotransferase (ALT/SGPT) 51 U/L (16-63) 52 U/L (16-63) Alkaline Phosphatase 190 U/L (46-116) 186 U/L (46-116) Ammonia 87 mcmol/L (11-34) 24 mcmol/L (11-34) Total Protein 5.2 g/dL (6.4-8.2) 5.3 g/dL (6.4-8.2) Albumin 2.0 g/dL (3.4-5.0) 2.1 g/dL (3.4-5.0) Albumin/Globulin Ratio 0.6 (1.0-1.7) 0.7 (1.0-1.7) Test 05/29/18 08:20 05/30/18 10:00 O2 Saturation 93 % (92-99) Arterial Blood pH 7.44 (7.35-7.45) Arterial Blood pCO2 at Patient Temp 45 mmHg (35-46) Arterial Blood pO2 at Patient Temp 69 mmHg (65-108) Arterial Blood HCO3 30 mmol/L (21-28) Arterial Blood Base Excess 5 mmol/L (-3-3) FiO2 24 White Blood Count 9.6 x10^3/uL (4.0-11.0) Red Blood Count 5.90 x10^6/uL (4.30-5.70) Hemoglobin 15.6 g/dL (13.0-17.5) Hematocrit 49.7 % (39.0-53.0) Mean Corpuscular Volume 84 fL (79-100) Mean Corpuscular Hemoglobin 26 pg (25-35) Mean Corpuscular Hemoglobin Concent 31 g/dL (31-37) Red Cell Distribution Width 22.9 % (11.5-14.5) Platelet Count 132 x10^3/uL (140-400) Sodium Level 143 mmol/L (136-145) Potassium Level 4.0 mmol/L (3.5-5.1) Chloride Level 106 mmol/L (98-107) Carbon Dioxide Level 31 mmol/L (21-32) Anion Gap 6 (6-14) Blood Urea Nitrogen 58 mg/dL (8-26) Creatinine 1.7 mg/dL (0.7-1.3) Estimated GFR (Cockcroft-Gault) 41.0 BUN/Creatinine Ratio 34 (6-20) Glucose Level 119 mg/dL (70-99) Calcium Level 7.1 mg/dL (8.5-10.1) Total Bilirubin 2.1 mg/dL (0.2-1.0) Aspartate Amino Transf (AST/SGOT) 216 U/L (15-37) Alanine Aminotransferase (ALT/SGPT) 49 U/L (16-63) Alkaline Phosphatase 225 U/L (46-116) Ammonia < 10 mcmol/L (11-34) Total Protein 6.2 g/dL (6.4-8.2) Albumin 2.4 g/dL (3.4-5.0) Albumin/Globulin Ratio 0.6 (1.0-1.7) Laboratory Tests Test 05/30/18 10:00 White Blood Count 9.6 x10^3/uL (4.0-11.0) Red Blood Count 5.90 x10^6/uL (4.30-5.70) Hemoglobin 15.6 g/dL (13.0-17.5) Hematocrit 49.7 % (39.0-53.0) Mean Corpuscular Volume 84 fL (79-100) Mean Corpuscular Hemoglobin 26 pg (25-35) Mean Corpuscular Hemoglobin Concent 31 g/dL (31-37) Red Cell Distribution Width 22.9 % (11.5-14.5) Platelet Count 132 x10^3/uL (140-400) Sodium Level 143 mmol/L (136-145) Potassium Level 4.0 mmol/L (3.5-5.1) Chloride Level 106 mmol/L (98-107) Carbon Dioxide Level 31 mmol/L (21-32) Anion Gap 6 (6-14) Blood Urea Nitrogen 58 mg/dL (8-26) Creatinine 1.7 mg/dL (0.7-1.3) Estimated GFR (Cockcroft-Gault) 41.0 BUN/Creatinine Ratio 34 (6-20) Glucose Level 119 mg/dL (70-99) Calcium Level 7.1 mg/dL (8.5-10.1) Total Bilirubin 2.1 mg/dL (0.2-1.0) Aspartate Amino Transf (AST/SGOT) 216 U/L (15-37) Alanine Aminotransferase (ALT/SGPT) 49 U/L (16-63) Alkaline Phosphatase 225 U/L (46-116) Ammonia < 10 mcmol/L (11-34) Total Protein 6.2 g/dL (6.4-8.2) Albumin 2.4 g/dL (3.4-5.0) Albumin/Globulin Ratio 0.6 (1.0-1.7) Problem List ESLD [facility] no surgical plans supportive measures available as needed JENNIFER SUERO MD 05/30/18 1614: SURGICAL PROGRESS NOTE Assessment/Plan agree with above will sign off please call if needed HERNAN SPENCE APRN May 30, 2018 11:20 JENNIFER SUERO MD May 30, 2018 16:14
--- NOTE | 2018-05-30 11:42 | PDOC ---
Subjective: Subjective: Breathing comes and goes. Knows the year and his birthday, says he's at [facility] in [place]. "I'd rather be confused" than continue significant stooling on Lactulose. Abd is tight w/ intermittent discomfort. Objective: Objective: D/w RN - has rectal bag, intermittent confusion makes palliative care discussion difficult, case management to be involved, tolerating PO. Vital Signs: Vital Signs Date Time Temp Pulse Resp B/P (MAP) Pulse Ox O2 Delivery O2 Flow Rate FiO2 05/30/18 11:00 101 18 92/56 (68) 99 Nasal Cannula 2.0 05/30/18 08:00 98.1 98.1 Labs: Laboratory Tests Test 05/30/18 10:00 White Blood Count 9.6 x10^3/uL Red Blood Count 5.90 x10^6/uL Hemoglobin 15.6 g/dL Hematocrit 49.7 % Mean Corpuscular Volume 84 fL Mean Corpuscular Hemoglobin 26 pg Mean Corpuscular Hemoglobin Concent 31 g/dL Red Cell Distribution Width 22.9 % Platelet Count 132 x10^3/uL Sodium Level 143 mmol/L Potassium Level 4.0 mmol/L Chloride Level 106 mmol/L Carbon Dioxide Level 31 mmol/L Anion Gap 6 Blood Urea Nitrogen 58 mg/dL Creatinine 1.7 mg/dL Estimated GFR (Cockcroft-Gault) 41.0 BUN/Creatinine Ratio 34 Glucose Level 119 mg/dL Calcium Level 7.1 mg/dL Total Bilirubin 2.1 mg/dL Aspartate Amino Transf (AST/SGOT) 216 U/L Alanine Aminotransferase (ALT/SGPT) 49 U/L Alkaline Phosphatase 225 U/L Ammonia < 10 mcmol/L Total Protein 6.2 g/dL Albumin 2.4 g/dL Albumin/Globulin Ratio 0.6 PE: GEN: NAD LUNGS: crackles HEART: tachycardic ABD: tight NEURO/PSYCH: probably some confused but converses appropriately w/ me A/P: Liver disease - Hep C/cirrhosis, suspected HCC Hepatic encephalopathy - ammonia ok today, intermittently confused, on lactulose w/ rectal tube Resp failure -- Palliative care discussion ongoing, difficult w/ mental status. Moderate ascites on CT. ?therapeutic paracentesis JO REEVES May 30, 2018 11:42
--- NOTE | 2018-05-30 12:59 | PDOC2 ---
PALLIATIVE CARE Palliative Care Note Palliative Care Consult requested by Dr. Barrios to address plan of care. Medical Assessment per record/Dr. Barrios 1. Acute on chronic hypoxic hypercapnic respiratory failure, resolved. 2. Liver cirrhosis with portal hypertension and esophageal varices due to chronic hepatitis C. 3. Hepatic encephalopathy, resolved. His ammonia is down from 87 to 24. 4. Acute on chronic kidney injury. His creatinine has risen from 1.5 to 1.8. 5. Hypernatremia. 6. Hepatocellular carcinoma versus metastatic cancer to the liver. 7. Chronic obstructive pulmonary disease. Labs reviewed. Patient more alert today. Oriented to person. (Thinks he is still at [facility]). Understands he has COPD and Liver Failure. "Im just going to anyway" Spoke with Shila ESPINOSA. Case Management and Marry REYES. Patient is not able to make his own decisions. Will need input from facility. Patient would benefit from Hospice/Comfort Care . Saw ESPINOSA, CM will discuss with [facility] regarding return to facility with comfort care. BALDO JULIAN May 30, 2018 12:59
--- NOTE | 2018-05-30 14:21 | PN ---
DATE: 05/30/2018 SUBJECTIVE: The patient is resting slightly propped up in bed, in no apparent respiratory distress. He is awake, alert, responding appropriately. He denied any complaint. Nursing staff stated that he has an uneventful night. OBJECTIVE: GENERAL: When I examined him this morning, he was pale, jaundiced, no cyanosis or thyromegaly. No jugular venous distension. Mild generalized anasarca. VITAL SIGNS: His heart rate is 88, blood pressure was 85/54, temperature was 98, respiratory rate was 10 and oxygen saturation was 98% on 2 liters of oxygen. HEAD, EYES, EARS, NOSE AND THROAT: Showed normocephalic, atraumatic. NECK: Supple. HEART: Showed normal first and second heart sounds. No gallop, rub or murmur. CHEST: Clear to auscultation. No crepitation or rhonchi. ABDOMEN: Distended, soft, nontender. No guarding or rigidity. No organomegaly. Hernial orifice intact. Bowel sounds normal. NEUROLOGIC: He is definitely more awake, alert, responding appropriately. Cranial nerves intact. He moves extremities without difficulty. His intake over the last 24 hours was 1090, output was 350. LABORATORY WORK: Still pending at the time of this dictation. As of yesterday, his white cell count was 6700, hemoglobin 14, hematocrit 45, MCV 83 and platelet count of 119,000. His serum sodium was 146, potassium 4.8, chloride 109, bicarbonate 32, anion gap of 5, BUN 60, creatinine 1.8, estimated GFR was 38 mL per minute, his glucose 138, calcium was 7, total bilirubin 1.9. AST and alkaline phosphatase are elevated. ALT is normal. His ammonia yesterday was 24. Total protein was 5.3, albumin 2.1. So far, his blood cultures are negative. His CT scan of the abdomen showed that the patient has bilateral pleural effusion, right greater than left, some mild atelectasis in the left lung base and infiltrate or atelectasis of the right lung base. He has a new 8-cm complex lesion in the right lobe of the liver, suspicious for malignancy. He has heterogenous decreased density in the left lobe of the liver, which could be due to fatty infiltration; however, malignancy cannot be excluded. He has splenomegaly, cholelithiasis and moderate amount of ascites. ASSESSMENT: In summary, this is a 62-year-old inmate at [facility] who was admitted with: 1. Acute on chronic hypoxic hypercapnic respiratory failure, resolved. His blood gases showed that his pH now is normalized at 7.37, pCO2 of 52, pO2 of 58, bicarbonate 29, and oxygen saturation was 98% on 2 liters of oxygen by nasal cannula. 2. Liver cirrhosis with portal hypertension and esophageal varices due to chronic hepatitis C. 3. Hepatic encephalopathy, resolved. His ammonia dropped down from 87 to 24. 4. Hepatocellular carcinoma with multicentric tumors involving both right and left lobes of liver. 5. Acute on chronic kidney injury. His creatinine has risen from 1.5-1.8. Today, his labs are still pending. 6. Hypernatremia. Serum sodium 146. Today's labs are still pending. 7. Chronic obstructive pulmonary disease. PLAN: My plan is to consult the palliative care team. The patient now is more awake, alert, lucid and he is his own decision maker. He does not have family. His has . He has no children, has no brothers and sisters. He has been incarcerated for decades and when he came to the Emergency Room, he was encephalopathic and that time, his decision was legally doubtful. I spoke with the doctors at the infirmary at the [facility] and they stated that according to them, if the patient is unable to make a decision, they have to have a psychiatrist and a doctor to sign DNR/DNI. I believe the patient is now capable of making this decision. He seemed to be open to palliative and hospice care. I will continue with current plan of management. I will consult the palliative care team and once he is stable, he can be discharged back to the correctional facility. MARGARITO TONEY MD DR: HILDA/grcae JOB#: [id number] / [id number]
[2018-05-30] MEDS: MORPHINE SULFATE 2 MG/ML VIAL. IV PRN ×2 (15:01→19:42)
[2018-05-31] VITALS (12 sets, daily range): BP systolic 76–104; BP diastolic 42–60
[2018-05-31] MEDS: MORPHINE SULFATE 2 MG/ML VIAL. IV PRN ×2 (00:12→08:53)
[2018-05-31] MEDS: PIPERACILLIN/TAZOBACTAM 3.375 GM in IV NORMAL SALINE 50ML 50 ML IV SCH ×2 (00:12→06:23)
[2018-05-31] MEDS: IPRATRPIUM/ALBUTEROL 0.5/2.5MG 3 ML NEBU. NEB SCH ×3 (03:35→12:10)
[2018-05-31 05:47] LABS: PROTHROMBIN TIME PATIENT 17.4 SEC (11.7-14.0)
[2018-05-31 05:53] LABS: CALCIUM 7.2 mg/dL (8.5-10.1); CREATININE 2.1 mg/dL (0.7-1.3); GFR 32.2; POTASSIUM 4.2 mmol/L (3.5-5.1)
[2018-05-31] MEDS: methylPREDNISolone SOD SUCC PF 40 MG/ML VIAL. IV SCH (06:24)
--- NOTE | 2018-05-31 07:40 | PDOC ---
Infectious Disease Note Subjective Subjective awake, says is ok, some abd pain ROS ROS no n/v/d/sob Vital Sign Vital Signs Vital Signs Date Time Temp Pulse Resp B/P (MAP) Pulse Ox O2 Delivery O2 Flow Rate FiO2 05/31/18 06:00 92 16 82/53 (63) 100 Nasal Cannula 2.0 05/31/18 04:00 97.6 97.6 Physical Exam PHYSICAL EXAM GENERAL: Lying down, alert, HENT: NAD LUNGS: CTAB anteriorly CV: S1 S2 ABDOMEN: Distended, soft, NT to light palpation : Indwelling [place] EXT: Chronic stasis changes and a few scabs lower extremities bilaterally, + wrinkles SKIN: Warm, no rash. 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 Labs Lab Laboratory Tests Test 05/30/18 10:00 05/31/18 05:00 White Blood Count 9.6 x10^3/uL (4.0-11.0) Red Blood Count 5.90 x10^6/uL (4.30-5.70) Hemoglobin 15.6 g/dL (13.0-17.5) Hematocrit 49.7 % (39.0-53.0) Mean Corpuscular Volume 84 fL (79-100) Mean Corpuscular Hemoglobin 26 pg (25-35) Mean Corpuscular Hemoglobin Concent 31 g/dL (31-37) Red Cell Distribution Width 22.9 % (11.5-14.5) Platelet Count 132 x10^3/uL (140-400) Sodium Level 143 mmol/L (136-145) 142 mmol/L (136-145) Potassium Level 4.0 mmol/L (3.5-5.1) 4.2 mmol/L (3.5-5.1) Chloride Level 106 mmol/L (98-107) 105 mmol/L (98-107) Carbon Dioxide Level 31 mmol/L (21-32) 32 mmol/L (21-32) Anion Gap 6 (6-14) 5 (6-14) Blood Urea Nitrogen 58 mg/dL (8-26) 63 mg/dL (8-26) Creatinine 1.7 mg/dL (0.7-1.3) 2.1 mg/dL (0.7-1.3) Estimated GFR (Cockcroft-Gault) 41.0 32.2 BUN/Creatinine Ratio 34 (6-20) Glucose Level 119 mg/dL (70-99) 112 mg/dL (70-99) Calcium Level 7.1 mg/dL (8.5-10.1) 7.2 mg/dL (8.5-10.1) Total Bilirubin 2.1 mg/dL (0.2-1.0) Aspartate Amino Transf (AST/SGOT) 216 U/L (15-37) Alanine Aminotransferase (ALT/SGPT) 49 U/L (16-63) Alkaline Phosphatase 225 U/L (46-116) Ammonia < 10 mcmol/L (11-34) < 10 mcmol/L (11-34) Total Protein 6.2 g/dL (6.4-8.2) Albumin 2.4 g/dL (3.4-5.0) Albumin/Globulin Ratio 0.6 (1.0-1.7) Tumor Marker Alpha Fetoprotein Afphi ng/mL (0.0-8.3) Prothrombin Time 17.4 SEC (11.7-14.0) Prothromb Time International Ratio 1.5 (0.8-1.1) Micro BC neg Objective Assessment 1. Bilateral interstitial opacities. 2. Acute respiratory failure. 3. Acute kidney injury. 4. Small-bowel obstruction versus ileus. 5. Hepatic encephalopathy. 6. Hepatocellular carcinoma. 7. Hepatitis C. 8. Chronic obstructive pulmonary disease. 9. Chronic venous stasis. 10. History of IV drug use. 11. Incarceration. Plan Plan of Care d/c Zosyn and Zyvox,, po augmentin BC NGTD ([facility]) Monitor labs/platelets Supportive care No family available Full code D/w RN prognosis poor d/c to facility soon CYRUS GUTIERREZ MD May 31, 2018 07:40
[2018-05-31] MEDS: BUDESONIDE 0.5 MG/2 ML NEBU. NEB SCH (08:08)
[2018-05-31] MEDS: MONTELUKAST SODIUM 10 MG TABLET. PO SCH (08:52)
[2018-05-31] MEDS: PANTOPRAZOLE 40 MG TABLET.DR. PO SCH (08:52)
[2018-05-31] MEDS: LACTULOSE 20 GM/30 ML SOLUTION. PO SCH (08:53)
[2018-05-31] MEDS ORDERED: AMOXICILLIN/K CLAV 500/125MG TABLET. PO SCH (09:00)
--- NOTE | 2018-05-31 09:36 | PN ---
DATE: 05/31/2018 SUBJECTIVE: The patient was resting, slightly propped up in bed, in no apparent respiratory distress, slightly tachypneic. He is awake, alert, asking for food and pain medication. His blood pressure is on the lower side at 82 mmHg. PHYSICAL EXAMINATION: GENERAL: When I examined him, he was pale and jaundiced, not cyanosis. No lymphadenopathy, no thyromegaly. No jugular venous distention, but generalized anasarca. VITAL SIGNS: His heart rate was 92, blood pressure was 82/53, temperature was 97.6, respiratory rate was 17 and oxygen saturation was 100% on 2 liters of oxygen. HEAD, EYES, EARS, NOSE AND THROAT: Showed normocephalic, atraumatic. NECK: Supple. HEART: Showed normal first and second heart sounds. No gallop, rub or murmur. CHEST: Clear to auscultation. No crepitation or rhonchi. ABDOMEN: Distended, soft, with tenderness mostly in the right upper quadrant. There is no guarding or rigidity. No organomegaly. All hernial orifice intact. Bowel sounds normal. NEUROLOGIC: He is definitely more awake, alert, responding appropriately. His cranial nerves are intact. He moves upper extremities to much good extent than lower extremities. His intake was 4985, output was 1845. LABORATORY DATA: As of this morning, his serum sodium was 142, potassium 4.2, chloride 105, bicarbonate 32, anion gap of 5, BUN 53, creatinine was 2.1, estimated GFR was 32 mL per minute, his glucose 112, calcium was 7.2. His ammonia was less than 10 and alpha fetoprotein was 159,803, with normal range of 0-8. White cell count was 9600, hemoglobin 15.6, hematocrit 49.7, MCV 84, platelet count of 132,000. Chemistry showed his prothrombin time was 17.4, INR 1.5. His nasal screen for MRSA by PCR was negative. ASSESSMENT: 1. Acute on chronic hypoxic respiratory failure, resolved. His blood gases showed that his pH has now normalized at 7.37, pCO2 of 52, pO2 of 58, bicarbonate was 29, oxygen saturation was 98% on 2 liters oxygen by nasal cannula. 2. Liver cirrhosis, portal hypertension, esophageal varices due to chronic hepatitis C. 3. Hepatic encephalopathy, resolved. His ammonia dropped down from 87-10 micromole/liter. 4. Hepatocellular carcinoma with multicentric tumors involving both right and left lobe of the liver. His alpha fetoprotein was 159,803, with normal range of 0-8. 5. Acute on chronic kidney injury with a creatinine worsening and has risen from 1.5-2.1, likely due to hepatorenal syndrome. 6. Hypernatremia, serum sodium has resolved. Most recent serum sodium 142 mEq per liter. 7. Chronic obstructive pulmonary disease. PLAN: My plan is to have a lengthy discussion with him together with the palliative care team and to contact his physician at the facility, and I think any other way for him to go is to be discharged on hospice and palliative care team. MARGARITO TONEY MD DR: HILDA/grace JOB#: [id number] / [id number]
--- NOTE | 2018-05-31 12:07 | DS ---
DATE OF DISCHARGE: 05/31/2018 HOSPITAL COURSE: The patient is a 62-year-old male patient and an inmate for decade in the [facility] who was seen originally in the Emergency Room of [facility] with altered mental status and was diagnosed with [id number] hypoxic hypercapnic respiratory failure. He is known to have advanced end-stage liver disease due to chronic hepatitis C. He was also hepatic encephalopathic and is known to have hepatocellular carcinoma and advanced end-stage COPD. He has also had hyperkalemia treated with dextrose and insulin as well as Kayexalate and bicarbonate and was started on some BiPAP. The patient became more awake, alert. We did start him also on IV antibiotic for possible pneumonia. He had an NG tube initially with lactulose given at 30 mL every 4 hours and the patient became more awake, alert, responding appropriately. His ammonia came down from 87 to 10. He became more awake, alert, responding appropriately. The palliative care team and nursing staff and other consulting services have discussed his option and that given the multitude of medical problems that hospice and vital care is his option. The patient did sign his DNR/DNI and agreed to go on hospice and the plan is for him to be discharged back to [facility] to go on hospice care. I spoke with the physician there and they will take care of him and hospice care for end of life care. PHYSICAL EXAMINATION: GENERAL: When I saw him today, he was resting slightly propped up in bed, slightly tachypneic, but no jaundiced or pale. No cyanosis, lymphadenopathy or thyromegaly. No jugular venous distention, but generalized anasarca. VITAL SIGNS: His heart rate was 92, blood pressure was 82/53, temperature was 97.6, respiratory rate was 33 and oxygen saturation was 99% on 3 liters of oxygen. HEAD, EYES, EARS, NOSE AND THROAT: Normocephalic, atraumatic. NECK: Supple. HEART: Showed normal first and second sounds. No gallop, rub or murmur. CHEST: Clear to auscultation. No crepitation or rhonchi. ABDOMEN: Distended, soft, nontender. No guarding or rigidity. No organomegaly. Hernial orifices intact. Bowel sounds normal. NEUROLOGIC: He definitely was awake, alert, responding appropriately. Cranial nerves intact. He moves upper extremities to much good extent than lower extremity. LABORATORY DATA: This morning showed a serum sodium 142, potassium 4.2, chloride 105, bicarbonate 32, anion gap of 5, BUN 63, creatinine 2.1, estimated GFR was 52 mL per minute, his glucose 112, calcium was 7.2. His ammonia was less than 10. His alpha fetoprotein was 159,800. The normal range 0-8. His white cell count was 9600, hemoglobin 15.6, hematocrit 49, MCV 84 and platelet count 232,000. DISCHARGE MEDICATIONS: He was discharged back to [facility] to continue on albuterol sulfate by nebulizer every 4 hours, aspirin 81 mg once a day, lactulose 30 mL daily, Singulair 10 mg once a day, morphine sulfate 50 mg every 8 hours, Protonix 40 mg daily, spironolactone for Aldactone 25 mg once a day. FINAL DISCHARGE DIAGNOSES: 1. Acute on chronic hypoxic hypercapnic respiratory failure, resolved. His blood gases showed his pH has normalized at 7.37, pCO2 of 52, pO2 of 58, bicarbonate 29. His oxygen saturation was 98% on 3 liters of oxygen by nasal cannula. 2. End-stage liver cirrhosis with portal hypertension and esophageal varices due to chronic hepatitis C. 3. Hepatic encephalopathy has resolved. His ammonia dropped from 87 to 10 micromole per liter. 4. Hepatocellular carcinoma with multicentric tumors involving both right and left lobe of the liver. His alpha fetoprotein was 159,803. 5. Acute on chronic kidney injury with creatinine is worsening, likely due to hepatorenal syndrome. 6. Hypernatremia, resolved. His serum sodium today is 142. 7. Chronic obstructive pulmonary disease. 8. Severe protein-calorie malnutrition with serum albumin is only 2 g/dL. MARGARITO TONEY MD DR: HILDA/grace JOB#: [id number] / [id number]
--- NOTE | 2018-05-31 12:38 | PDOC ---
PULMONARY PROGRESS NOTES Subjective less soa, more alert Vitals Vital Signs Date Time Temp Pulse Resp B/P (MAP) Pulse Ox O2 Delivery O2 Flow Rate FiO2 05/31/18 12:10 99 Nasal Cannula 3.0 05/31/18 11:00 97.6 96 78/52 (61) 97.6 05/31/18 10:00 28 General: Alert, No acute distress Lungs: Other (decrease bs) Cardiovascular: S1, S2 Abdomen: Soft, Non-tender Extremities: Other (trace edema) Skin: Warm Labs Laboratory Tests Test 05/30/18 10:00 05/31/18 05:00 White Blood Count 9.6 x10^3/uL (4.0-11.0) Red Blood Count 5.90 x10^6/uL (4.30-5.70) Hemoglobin 15.6 g/dL (13.0-17.5) Hematocrit 49.7 % (39.0-53.0) Mean Corpuscular Volume 84 fL (79-100) Mean Corpuscular Hemoglobin 26 pg (25-35) Mean Corpuscular Hemoglobin Concent 31 g/dL (31-37) Red Cell Distribution Width 22.9 % (11.5-14.5) Platelet Count 132 x10^3/uL (140-400) Sodium Level 143 mmol/L (136-145) 142 mmol/L (136-145) Potassium Level 4.0 mmol/L (3.5-5.1) 4.2 mmol/L (3.5-5.1) Chloride Level 106 mmol/L (98-107) 105 mmol/L (98-107) Carbon Dioxide Level 31 mmol/L (21-32) 32 mmol/L (21-32) Anion Gap 6 (6-14) 5 (6-14) Blood Urea Nitrogen 58 mg/dL (8-26) 63 mg/dL (8-26) Creatinine 1.7 mg/dL (0.7-1.3) 2.1 mg/dL (0.7-1.3) Estimated GFR (Cockcroft-Gault) 41.0 32.2 BUN/Creatinine Ratio 34 (6-20) Glucose Level 119 mg/dL (70-99) 112 mg/dL (70-99) Calcium Level 7.1 mg/dL (8.5-10.1) 7.2 mg/dL (8.5-10.1) Total Bilirubin 2.1 mg/dL (0.2-1.0) Aspartate Amino Transf (AST/SGOT) 216 U/L (15-37) Alanine Aminotransferase (ALT/SGPT) 49 U/L (16-63) Alkaline Phosphatase 225 U/L (46-116) Ammonia < 10 mcmol/L (11-34) < 10 mcmol/L (11-34) Total Protein 6.2 g/dL (6.4-8.2) Albumin 2.4 g/dL (3.4-5.0) Albumin/Globulin Ratio 0.6 (1.0-1.7) Tumor Marker Alpha Fetoprotein Afphi ng/mL (0.0-8.3) Prothrombin Time 17.4 SEC (11.7-14.0) Prothromb Time International Ratio 1.5 (0.8-1.1) Laboratory Tests Test 05/31/18 05:00 Prothrombin Time 17.4 SEC (11.7-14.0) Prothromb Time International Ratio 1.5 (0.8-1.1) Sodium Level 142 mmol/L (136-145) Potassium Level 4.2 mmol/L (3.5-5.1) Chloride Level 105 mmol/L (98-107) Carbon Dioxide Level 32 mmol/L (21-32) Anion Gap 5 (6-14) Blood Urea Nitrogen 63 mg/dL (8-26) Creatinine 2.1 mg/dL (0.7-1.3) Estimated GFR (Cockcroft-Gault) 32.2 Glucose Level 112 mg/dL (70-99) Calcium Level 7.2 mg/dL (8.5-10.1) Ammonia < 10 mcmol/L (11-34) Medications Active Scripts Medications Dose Route/Sig Max Daily Dose Days Date Category Dose Instructions Tums (Calcium Carbonate) 200 Mg Tab.chew 200 Mg PO PRN BID PRN 05/28/18 Reported Triamcinolone Acetonide 0.1% Oint (Triamcinolone Acetonide) 15 Gm Oint...g. 1 Tara TP BID 05/28/18 Reported MIX WITH EUCERIN DIRECTED BY PHYSICIAN Morphine Sulfate 15 Mg Tablet 15 Mg PO PRN Q8HRS PRN 05/28/18 Reported Lactulose 20 Gm/30 Ml Solution 20 Gm PO DAILY 05/28/18 Reported Furosemide 40 Mg Tablet 40 Mg PO BID 05/28/18 Reported Aldactone (Spironolactone) 25 Mg Tablet 25 Mg PO [id number] 06/28/15 Rx Protonix (Pantoprazole Sodium) 40 Mg Tablet 40 Mg PO DAILYAC 06/28/15 Rx Ventolin Hfa Inhaler (Albuterol Sulfate) 18 Gm Hfa.aer.ad 2 Puff INH QID 06/17/15 Reported Albuterol Sulfate Conc Neb Soln (Albuterol Sulfate) 2.5 Mg/0.5 Ml Vial.neb 2.5 Mg NEB TID 06/17/15 Reported Singulair Tablet (Montelukast Sodium) 10 Mg Tablet 1 Tab PO DAILY 06/17/15 Reported Norvasc (Amlodipine Besylate) 10 Mg Tablet 1 Tab PO DAILY 06/17/15 Reported Lisinopril 40 Mg Tablet 1 Tab PO DAILY 06/17/15 Reported Aspirin 81 Mg Tab.chew 1 Tab PO DAILY 06/17/15 Reported Impression . 1. Acute hypoxemic respiratory failure, multifactorial in etiology including pneumonia RLL, acute exacerbation of chronic obstructive pulmonary disease 2. Abnormal chest x-ray./ ct abdomen with small RLL effusion/ infiltrate RLL 3. Pneumonia. 4. Acute exacerbation of chronic obstructive pulmonary disease. 5. Hepatitis C. 6. Hepatocellular carcinoma. 7. Hepatic encephalopathy, improving. 8. Thrombocytopenia. 9. Acute kidney injury. 10. Sepsis. Plan . 1. Titrate FiO2 to keep O2 saturation 92%. 2. Nasal canula 3. Bronchodilator. 4. Inhaled corticosteroid. 5. steroid , taper 6. Continue antibiotic. Follow up cultures. ID is on the case. 7. off pressors . keep mean arterial pressure more than 65. 8. Elevate head of bed. 9. Lower extremity venous Doppler negative 10. Protonix for stress ulcer prophylaxis. 11. dc plans per PCP GIOVANI LOWRY MD May 31, 2018 12:38
--- NOTE | 2018-05-31 12:38 | PDOC ---
Subjective: Subjective: Seen earlier when unable to use [employer]. Has some abd pain, tells me he signed the Hospice papers. Objective: Objective: Reviewed w/ RN - pt requests Hospice, mentally okay today. Vital Signs: Vital Signs Date Time Temp Pulse Resp B/P (MAP) Pulse Ox O2 Delivery O2 Flow Rate FiO2 05/31/18 12:10 99 Nasal Cannula 3.0 05/31/18 11:00 97.6 96 78/52 (61) 97.6 05/31/18 10:00 28 Labs: Laboratory Tests Test 05/31/18 05:00 Prothrombin Time 17.4 SEC Prothromb Time International Ratio 1.5 Sodium Level 142 mmol/L Potassium Level 4.2 mmol/L Chloride Level 105 mmol/L Carbon Dioxide Level 32 mmol/L Anion Gap 5 Blood Urea Nitrogen 63 mg/dL Creatinine 2.1 mg/dL Estimated GFR (Cockcroft-Gault) 32.2 Glucose Level 112 mg/dL Calcium Level 7.2 mg/dL Ammonia < 10 mcmol/L PE: GEN: NAD LUNGS: crackles, NC HEART: RRR ABD: tight, mildly uncomfortable, rectal tube w/ liquid dark stool NEURO/PSYCH: A & O 3 A/P: Liver disease - Hep C/cirrhosis, suspected HCC (AFP >150,000) Hepatic encephalopathy - better -- Now has DC orders, agree Hospice is appropriate. JO REEVES May 31, 2018 12:37
== END 2018-05-31 12:10 | disposition hospice, home (50) | DRG 871 ==
LOC: EEVIPCON 11:00 → 1 WEST ICU 11:00
PROVIDERS: ADMIT Internal Medicine; ATTEND Internal Medicine
PROC: 5A09357 Assistance with Respiratory Ventilation, Less than 24 Consecutive Hours, Continuous Positive Airway Pressure (ICD-10-PCS; principal; 2018-05-28)
DX: A41.9 Sepsis, unspecified organism (principal); J18.9 Pneumonia, unspecified organism; J96.21 Acute and chronic respiratory failure with hypoxia; K76.7 Hepatorenal syndrome; E43 Unspecified severe protein-calorie malnutrition; J96.22 Acute and chronic respiratory failure with hypercapnia; I85.10 Secondary esophageal varices without bleeding; N17.9 Acute kidney failure, unspecified; C22.0 Liver cell carcinoma; E87.0 Hyperosmolality and hypernatremia; J44.0 Chronic obstructive pulmonary disease with (acute) lower respiratory infection; J44.1 Chronic obstructive pulmonary disease with (acute) exacerbation; K76.6 Portal hypertension; R18.8 Other ascites; Z66 Do not resuscitate; K72.90 Hepatic failure, unspecified without coma; B18.2 Chronic viral hepatitis C; D69.6 Thrombocytopenia, unspecified; E03.9 Hypothyroidism, unspecified; Z68.22 Body mass index [BMI] 22.0-22.9, adult; E87.5 Hyperkalemia; F17.200 Nicotine dependence, unspecified, uncomplicated; I12.9 Hypertensive chronic kidney disease with stage 1 through stage 4 chronic kidney disease, or unspecified chronic kidney disease; I25.10 Atherosclerotic heart disease of native coronary artery without angina pectoris; I73.9 Peripheral vascular disease, unspecified; I87.8 Other specified disorders of veins; K40.90 Unilateral inguinal hernia, without obstruction or gangrene, not specified as recurrent; K74.60 Unspecified cirrhosis of liver; N18.9 Chronic kidney disease, unspecified; Z51.5 Encounter for palliative care; Z82.49 Family history of ischemic heart disease and other diseases of the circulatory system; F41.9 Anxiety disorder, unspecified; M19.90 Unspecified osteoarthritis, unspecified site
CPT/HCPCS: 36415; 36600; 71045; 74018; 74176; 80048; 80053; 82105; 82140; 82805; 83605; 85027; 85610; 87641; 93970; 94640; 94660; 94760; J2020; J2270; J2543; J2920; J7030; J7040; J7613; J7620; J7626